=== PATIENT | female | born 1960 | race Caucasian/White ===

== ENCOUNTER 2020-11-15 07:05 | Day surgery (SDC) | payer MEDICAID ==
[~2020-11-15] VITALS: Ht 152.4 cm; Wt 64.5 kg
[2020-11-15] VITALS (10 sets, daily range): BP systolic 110–144; BP diastolic 67–77
[~2020-11-15 07:05] MED LIST: ASPI-1053 PO; CILO50TA2 PO; CLOP75TA34 PO; INSU100I31 SQ; LISI-600 PO; METF-438 PO; SIMV-45 PO; VENL150C58 PO
[2020-11-15] MEDS ORDERED: normal saline 1,000 ML IV SCH (07:30)
[2020-11-15] MEDS ORDERED: diphenhydrAMINE 25mg capsule PO PRN (07:30)
[2020-11-15] MEDS ORDERED: RIVA2.5T PEG (07:44)
[2020-11-15] MEDS ORDERED: VARE0.5T PO (07:44)
[2020-11-15] MEDS ORDERED: ATOR80TA13 PO (07:44)
[2020-11-15 08:12] LABS: BASOPHILS # (AUTO) 0.1 X10'3 (0-0.2); BASOPHILS % (AUTO) 0.8 % (0-1); EOSINOPHILS # (AUTO) 0.2 X10'3 (0-0.9); EOSINOPHILS % (AUTO) 2.1 % (0-6); HEMATOCRIT 37.8 % (35.0-45.0); HEMOGLOBIN 12.3 g/dl (12.0-16.0); LYMPHOCYTES # (AUTO) 2.6 X10'3 (1.1-4.8); LYMPHOCYTES % (AUTO) 24.6 % (21-51); MEAN CORPUSCULAR HEMOGLOBIN 26.5 PG (27.0-31.0); MEAN CORPUSCULAR HGB CONC 32.5 g/dL (33.0-36.5); MEAN CORPUSCULAR VOLUME 81.4 FL (78-98); MEAN PLATELET VOLUME 8.2 FL (7.4-10.4); MONOCYTES # (AUTO) 0.7 X10'3 (0-0.9); MONOCYTES % (AUTO) 6.8 % (2-12); NEUTROPHILS % (AUTO) 65.7 % (42-75); PLATELET COUNT 376 X10'3 (140-440); RED BLOOD COUNT 4.64 X10'6 (4.20-5.60); RED CELL DISTRIBUTION WIDTH 13.6 % (11.5-14.5); WHITE BLOOD COUNT 10.7 X10'3 (4.5-11.0)
[2020-11-15 08:20] LABS: ALBUMIN 3.7 G/DL (3.4-5.0); ANION GAP 9 (8-16); BLOOD UREA NITROGEN 16 MG/DL (7-18); BUN/CREATININE RATIO 19.5 (6.6-38.0); CALCIUM 9.1 MG/DL (8.5-10.1); CHLORIDE 103 MMOL/L (99-107); CREATININE 0.82 MG/DL (0.40-0.90); GLUCOSE 134 MG/DL (70-104); MAGNESIUM 1.3 MG/DL (1.5-2.4); POTASSIUM 4.4 MMOL/L (3.5-5.1); SODIUM 139 MMOL/L (135-145); eGFR 72 ML/MIN
[2020-11-15] MEDS ORDERED: fentaNYL/PF 50MCG/1 ML 2ML syringe ONE (09:00)
[2020-11-15] MEDS ORDERED: iohexol 350 MG/1 ML 200ml bottle ONE (09:00)
[2020-11-15] MEDS ORDERED: heparin 1,000unit/ml 10ml vial 10 ML ONE (09:00)
[2020-11-15] MEDS ORDERED: midazolam 2 mg/2 ml injection ONE ×2 (09:00→09:37)
[2020-11-15] MEDS ORDERED: iohexol 350 MG/ML 50ML vial IV ONE (09:00)
[2020-11-15] MEDS ORDERED: LIDOcaine 1% (10mg/ml)w/preservative injection 20ml MDV ONE (09:00)
[2020-11-15] MEDS ORDERED: nitroGLYCERIN-Tridil 50MG/D5W 250 ML IV ONE (10:12)
[2020-11-15] MEDS ORDERED: HYDROcodone/acetaminophen 10/325mg tab PO PRN (11:05)
[2020-11-15] MEDS ORDERED: proCHLORperazine 10 MG/2 ml inj IV PRN (11:05)
[2020-11-15] MEDS ORDERED: ondansetron/PF 4mg/2ml inj IV PRN (11:05)
[2020-11-15] MEDS ORDERED: HYDROcodone/acetaminophen 5mg/325mg tablet PO PRN (11:05)
--- NOTE | 2020-11-15 11:05 | NUR ---
pt site with drainage on drsg, area marked, no hematoma. Pt denies pain, vs stable as charted. will continue to monitor and will recheck in 10 min
--- NOTE | 2020-11-15 11:15 | NUR ---
Pressure applied at right groin, no hematoma, dressing changed with sterile technique. No visible bleeding and no hematoma after dressing change. VS stable as charted. Pt denies pain. Pulses checked and documented. Will continue to monitor.
--- NOTE | 2020-11-15 14:26 | NUR ---
Pt sitting up in bed. Drsg looks the same, no hematoma. Will continue to monitor.
--- NOTE | 2020-11-15 14:50 | NUR ---
Drsg to right groin changed with sterile technique. Pressure dressing applied over the top of Tegaderm with sponge tape, Pt verbalized understanding to remove dressing after 24 hours. No s/s of bleeding or infection.
== END 2020-11-15 15:30 | disposition home or self-care (01) ==
LOC: SSTAY O 07:05
PROVIDERS: ATTEND Internal Medicine Cardiovascular Disease
DX: R94.39 Abnormal result of other cardiovascular function study (principal); I25.10 Atherosclerotic heart disease of native coronary artery without angina pectoris; I10 Essential (primary) hypertension; E11.51 Type 2 diabetes mellitus with diabetic peripheral angiopathy without gangrene; E78.00 Pure hypercholesterolemia, unspecified; Z79.899 Other long term (current) drug therapy; Z72.0 Tobacco use; M62.81 Muscle weakness (generalized)
CPT/HCPCS: 36140; 36415; 75710; 80048; 82948; 83735; 85025; 85610; 92920; 93005; 93458; C1751; C1760; C1769; C1894; J1644; J2001; J2250; J3010; J7030; Q0163; Q9967; 99152; 99153; A4620; A6258; C9607; J3490

== ENCOUNTER 2020-12-27 06:15 | Day surgery (SDC) | payer MEDICAID ==
[~2020-12-27] VITALS: Ht 165.1 cm; Wt 66.3 kg
[2020-12-27] VITALS (9 sets, daily range): BP systolic 96–147; BP diastolic 65–74
[~2020-12-27 06:15] MED LIST changes: -ASPI-1053 PO; +ATOR80TA13 PO; -LISI-600 PO; +LISI20TA28 PO; +RIVA2.5T PEG; -SIMV-45 PO; +VARE0.5T PO
[2020-12-27] MEDS ORDERED: normal saline 1,000 ML IV SCH (06:35)
[2020-12-27] MEDS ORDERED: diphenhydrAMINE 25mg capsule PO PRN (06:35)
[2020-12-27] MEDS ORDERED: EZET10TA6 PO (06:55)
[2020-12-27] MEDS ORDERED: NITR0.4T51 SL (06:55)
[2020-12-27 07:16] LABS: BASOPHILS # (AUTO) 0.1 X10'3 (0-0.2); BASOPHILS % (AUTO) 1.3 % (0-1); EOSINOPHILS # (AUTO) 0.5 X10'3 (0-0.9); HEMATOCRIT 34.8 % (35.0-45.0); HEMOGLOBIN 11.4 g/dl (12.0-16.0); LYMPHOCYTES # (AUTO) 2.8 X10'3 (1.1-4.8); LYMPHOCYTES % (AUTO) 29.8 % (21-51); MEAN CORPUSCULAR HEMOGLOBIN 26.8 PG (27.0-31.0); MEAN CORPUSCULAR HGB CONC 32.9 g/dL (33.0-36.5); MEAN CORPUSCULAR VOLUME 81.4 FL (78-98); MEAN PLATELET VOLUME 8.8 FL (7.4-10.4); MONOCYTES # (AUTO) 0.6 X10'3 (0-0.9); MONOCYTES % (AUTO) 5.9 % (2-12); NEUTROPHILS # (AUTO) 5.4 X10'3 (1.8-7.7); PLATELET COUNT 313 X10'3 (140-440); RED BLOOD COUNT 4.28 X10'6 (4.20-5.60); RED CELL DISTRIBUTION WIDTH 13.4 % (11.5-14.5); WHITE BLOOD COUNT 9.3 X10'3 (4.5-11.0)
[2020-12-27 07:37] LABS: ALBUMIN 3.5 G/DL (3.4-5.0); ANION GAP 10 (8-16); BLOOD UREA NITROGEN 17 MG/DL (7-18); BUN/CREATININE RATIO 19.5 (6.6-38.0); CALCIUM 9.1 MG/DL (8.5-10.1); CHLORIDE 101 MMOL/L (99-107); CREATININE 0.87 MG/DL (0.40-0.90); GLUCOSE 376 MG/DL (70-104); MAGNESIUM 1.3 MG/DL (1.5-2.4); POTASSIUM 4.1 MMOL/L (3.5-5.1); SODIUM 137 MMOL/L (135-145); TOTAL CARBON DIOXIDE 26.5 MMOL/L (24-32); eGFR 67 ML/MIN
[2020-12-27] MEDS ORDERED: proCHLORperazine 10 MG/2 ml inj ONE (09:06)
[2020-12-27] MEDS ORDERED: midazolam 1 mg/ML 2ml injection ONE (09:06)
[2020-12-27] MEDS ORDERED: iohexol 350 MG/1 ML 200ml bottle ONE (09:07)
[2020-12-27] MEDS ORDERED: fentaNYL/PF 50MCG/1 ML 2ML syringe ONE (09:07)
[2020-12-27] MEDS ORDERED: heparin 1,000unit/ml 10ml vial 10 ML ONE (09:07)
[2020-12-27] MEDS ORDERED: LIDOcaine 1% (10mg/ml)w/preservative injection 20ml MDV ONE (09:07)
[2020-12-27] MEDS ORDERED: iohexol 350 MG/ML 50ML vial IV ONE (09:07)
[2020-12-27] MEDS ORDERED: normal saline 1,000 ML IV ONE (11:33)
[2020-12-27] MEDS ORDERED: normal saline 1000ml 400 ML IV ONE (11:45)
[2020-12-27] MEDS ORDERED: ondansetron/PF 4mg/2ml inj IV PRN (11:50)
[2020-12-27] MEDS ORDERED: HYDROcodone/acetaminophen 10/325mg tab PO PRN (11:50)
[2020-12-27] MEDS ORDERED: proCHLORperazine 10 MG/2 ml inj IV PRN (11:50)
[2020-12-27] MEDS ORDERED: HYDROcodone/acetaminophen 5mg/325mg tablet PO PRN (11:50)
== END 2020-12-27 15:55 | disposition home or self-care (01) ==
LOC: SSTAY O 06:15
PROVIDERS: ATTEND Internal Medicine Cardiovascular Disease
DX: E11.51 Type 2 diabetes mellitus with diabetic peripheral angiopathy without gangrene (principal); I70.213 Atherosclerosis of native arteries of extremities with intermittent claudication, bilateral legs; E78.5 Hyperlipidemia, unspecified; I10 Essential (primary) hypertension; F41.9 Anxiety disorder, unspecified; F32.9 Major depressive disorder, single episode, unspecified; Z79.899 Other long term (current) drug therapy; Z87.891 Personal history of nicotine dependence; Z79.01 Long term (current) use of anticoagulants; Z79.82 Long term (current) use of aspirin; Z98.49 Cataract extraction status, unspecified eye
CPT/HCPCS: 36415; 37226; 75716; 80048; 82948; 83735; 85025; 85610; 93005; 99152; 99153; C1725; C1760; C1769; C1876; C1894; J0780; J1644; J2001; J2250; J3010; J7030; Q0163; Q9967; A4620; A6258; C2623

== ENCOUNTER 2021-01-31 08:00 | Day surgery (SDC) | payer MEDICAID ==
[~2021-01-31] VITALS: Ht 152.4 cm; Wt 64.1 kg
[2021-01-31] VITALS (10 sets, daily range): BP systolic 142–171; BP diastolic 67–87
[~2021-01-31 08:00] MED LIST changes: +EZET10TA6 PO; +NITR0.4T51 SL
[2021-01-31] MEDS ORDERED: normal saline 1,000 ML IV SCH (08:30)
[2021-01-31] MEDS ORDERED: diphenhydrAMINE 25mg capsule PO PRN (08:30)
[2021-01-31] MEDS ORDERED: fentaNYL/PF 50MCG/1 ML 2ML syringe ONE ×2 (08:40→10:43)
[2021-01-31] MEDS ORDERED: midazolam 1 mg/ML 2ml injection ONE ×3 (08:40→09:54)
[2021-01-31] MEDS ORDERED: LIDOcaine 1% (10mg/ml)w/preservative injection 20ml MDV ONE (08:40)
[2021-01-31] MEDS ORDERED: heparin 1,000unit/ml 10ml vial 10 ML ONE (08:44)
[2021-01-31] MEDS ORDERED: iohexol 350MG/ML 100ml bottle IV ONE (08:44)
[2021-01-31 09:12] LABS: BASOPHILS # (AUTO) 0.1 X10'3 (0-0.2); BASOPHILS % (AUTO) 1.4 % (0-1); EOSINOPHILS # (AUTO) 0.4 X10'3 (0-0.9); EOSINOPHILS % (AUTO) 4.2 % (0-6); HEMATOCRIT 36.7 % (35.0-45.0); HEMOGLOBIN 11.9 g/dl (12.0-16.0); LYMPHOCYTES # (AUTO) 2.4 X10'3 (1.1-4.8); LYMPHOCYTES % (AUTO) 28.2 % (21-51); MEAN CORPUSCULAR HEMOGLOBIN 26.7 PG (27.0-31.0); MEAN CORPUSCULAR HGB CONC 32.3 g/dL (33.0-36.5); MEAN CORPUSCULAR VOLUME 82.5 FL (78-98); MEAN PLATELET VOLUME 8.2 FL (7.4-10.4); MONOCYTES # (AUTO) 0.5 X10'3 (0-0.9); NEUTROPHILS # (AUTO) 5.2 X10'3 (1.8-7.7); NEUTROPHILS % (AUTO) 60.2 % (42-75); PLATELET COUNT 333 X10'3 (140-440); RED BLOOD COUNT 4.45 X10'6 (4.20-5.60); RED CELL DISTRIBUTION WIDTH 13.7 % (11.5-14.5); WHITE BLOOD COUNT 8.7 X10'3 (4.5-11.0)
[2021-01-31 09:19] LABS: ALBUMIN 3.5 G/DL (3.4-5.0); ANION GAP 8 (8-16); BLOOD UREA NITROGEN 13 MG/DL (7-18); BUN/CREATININE RATIO 14.9 (6.6-38.0); CALCIUM 8.9 MG/DL (8.5-10.1); CHLORIDE 103 MMOL/L (99-107); CREATININE 0.87 MG/DL (0.40-0.90); GLUCOSE 293 MG/DL (70-104); MAGNESIUM 1.5 MG/DL (1.5-2.4); POTASSIUM 4.1 MMOL/L (3.5-5.1); SODIUM 138 MMOL/L (135-145); TOTAL CARBON DIOXIDE 27.1 MMOL/L (24-32); eGFR 67 ML/MIN
[2021-01-31] MEDS ORDERED: proCHLORperazine 10 MG/2 ml inj ONE (09:52)
[2021-01-31] MEDS ORDERED: iohexol 350 MG/ML 50ML vial IV ONE (10:23)
[2021-01-31] MEDS ORDERED: clopidogrel 300mg tablet ONE (10:58)
--- NOTE | 2021-01-31 11:20 | NUR ---
Problems reprioritized. Patient report given, questions answered & plan of care reviewed with Samantha DE LA ROSA.
--- NOTE | 2021-01-31 11:23 | NUR ---
Pt back from procedure. In room, pt site is stable, DRSG CD&I. Pt denies pain, vs stable as charted. Pt refuses food and drink at this time, will continue to monitor. Positive doppler pulses posterior tibia and positive Doppler pulse to rt dorsalis pedis, pulse palpated on rt dorsalis pedis. Pt started to cough and developed a hematoma to left groin. Pressure held for 10min and rechecked site. Pt site is stable, soft, no hematoma felt. Drsg is CD&I, Will continue to monitor.
[2021-01-31] MEDS ORDERED: HYDROcodone/acetaminophen 10/325mg tab PO PRN (11:45)
[2021-01-31] MEDS ORDERED: normal saline 1000ml 1,000 ML IV SCH (11:45)
[2021-01-31] MEDS ORDERED: proCHLORperazine 10 MG/2 ml inj IV PRN (11:45)
[2021-01-31] MEDS ORDERED: ondansetron/PF 4mg/2ml inj IV PRN (11:45)
[2021-01-31] MEDS ORDERED: HYDROcodone/acetaminophen 5mg/325mg tablet PO PRN (11:45)
--- NOTE | 2021-01-31 11:47 | NUR ---
Samantha RN at bedside, was given report on left groin. Will continue to monitor.
== END 2021-01-31 16:00 | disposition home or self-care (01) ==
LOC: SSTAY O 08:00
PROVIDERS: ATTEND Internal Medicine Cardiovascular Disease
DX: I70.213 Atherosclerosis of native arteries of extremities with intermittent claudication, bilateral legs (principal); M79.605 Pain in left leg; M79.604 Pain in right leg; Z95.820 Peripheral vascular angioplasty status with implants and grafts
CPT/HCPCS: 36415; 37226; 75710; 80048; 83735; 85025; 85610; 93005; 99152; 99153; C1725; C1760; C1769; C1876; C1887; C1894; J0780; J1644; J2001; J2250; J3010; J7030; Q0163; Q9967; 36247; A4620; A6258; C2623

== ENCOUNTER 2021-07-06 14:51 | Inpatient (IN) | payer MEDICAID ==
[2021-07-06] VITALS (10 sets, daily range): BP systolic 92–173; BP diastolic 63–83
[~2021-07-06] VITALS: Ht 152.4 cm; Wt 64.3 kg
[~2021-07-06 14:51] MED LIST changes: -VARE0.5T PO
[2021-07-06] MEDS ORDERED: diphenhydrAMINE 25mg capsule PO PRN (15:20)
[2021-07-06] MEDS ORDERED: VARE0.5T PO (15:27)
[2021-07-06] MEDS ORDERED: VARE1TAB21 PO (15:29)
[2021-07-06] MEDS ORDERED: AMLO2.5T2 PO (15:30)
[2021-07-06 15:42] LABS: BASOPHILS # (AUTO) 0.2 X10'3 (0-0.2); BASOPHILS % (AUTO) 1.7 % (0-1); EOSINOPHILS # (AUTO) 0.6 X10'3 (0-0.9); EOSINOPHILS % (AUTO) 5.8 % (0-6); HEMATOCRIT 36.5 % (35.0-45.0); HEMOGLOBIN 11.6 g/dl (12.0-16.0); LYMPHOCYTES # (AUTO) 2.7 X10'3 (1.1-4.8); MEAN CORPUSCULAR HGB CONC 31.8 g/dL (33.0-36.5); MEAN CORPUSCULAR VOLUME 78.6 FL (78-98); MEAN PLATELET VOLUME 8.4 FL (7.4-10.4); MONOCYTES # (AUTO) 0.6 X10'3 (0-0.9); MONOCYTES % (AUTO) 6.2 % (2-12); NEUTROPHILS # (AUTO) 5.9 X10'3 (1.8-7.7); NEUTROPHILS % (AUTO) 59.3 % (42-75); PLATELET COUNT 393 X10'3 (140-440); RED BLOOD COUNT 4.65 X10'6 (4.20-5.60); RED CELL DISTRIBUTION WIDTH 14.5 % (11.5-14.5); WHITE BLOOD COUNT 9.9 X10'3 (4.5-11.0)
[2021-07-06 15:50] LABS: ALBUMIN 3.4 G/DL (3.4-5.0); ANION GAP 9 (8-16); BLOOD UREA NITROGEN 12 MG/DL (7-18); BUN/CREATININE RATIO 15.8 (6.6-38.0); CALCIUM 9.2 MG/DL (8.5-10.1); CHLORIDE 103 MMOL/L (99-107); CREATININE 0.76 MG/DL (0.40-0.90); GLUCOSE 293 MG/DL (70-104); MAGNESIUM 1.4 MG/DL (1.5-2.4); POTASSIUM 4.2 MMOL/L (3.5-5.1); SODIUM 139 MMOL/L (135-145); TOTAL CARBON DIOXIDE 27.3 MMOL/L (24-32); eGFR 78 ML/MIN
[2021-07-06] MEDS: normal saline 1,000 ML IV SCH ×3 (16:10→23:44)
[2021-07-06] MEDS ORDERED: heparin 1,000unit/ml 10ml vial 10 ML ONE ×2 (16:12→18:31)
[2021-07-06] MEDS ORDERED: LIDOcaine 1% (10mg/ml)w/preservative injection 20ml MDV ONE (16:12)
[2021-07-06] MEDS ORDERED: midazolam 1 mg/ML 2ml injection ONE ×3 (16:12→17:28)
[2021-07-06] MEDS ORDERED: iohexol 350MG/ML 100ml bottle IV ONE (16:12)
[2021-07-06] MEDS ORDERED: fentaNYL/PF 50MCG/1 ML 2ML syringe ONE ×2 (16:12→17:28)
[2021-07-06] MEDS: tPA-cathflo 2mg/2ml IV flush 4 MG in normal saline 100ml IV soln 100 ML ICATH SCH ×2 (17:30→21:46)
[2021-07-06] MEDS ORDERED: tPA-cathflo 2 MG/2 ml IV flush ONE (17:46)
[2021-07-06] MEDS ORDERED: heparin 25,000 UNIT/250ml bag 250 ML IV ONE (18:28)
--- NOTE | 2021-07-06 19:30 | NUR ---
RN Note -Admit Pt arrived from laboratory technician, drowsy bur oriented, denies pain. Assessed groin sheath site and pulses with Dry Room Operator RN. Groin site has small amount of blood oozing inside dressing, no hematoma, not tender. Unable to obtain doppler pulses on right side pedal and post. tib. Doppler pulses on left side weak and difficult to find. Both feet are warm with delayed cap refill.
[2021-07-06] MEDS ORDERED: heparin 10,000 units/1 ML INJ IV ONE ×2 (19:45→20:25)
[2021-07-06] MEDS ORDERED: heparin 10,000 units/1 ML INJ IV PRN ×2 (19:45→20:30)
[2021-07-06] MEDS ORDERED: heparin 25,000 UNIT/250ml bag 250 ML IV SCH (19:45)
[2021-07-06] MEDS ORDERED: HYDROcodone/acetaminophen 5mg/325mg tablet PO PRN (19:50)
[2021-07-06] MEDS ORDERED: acetaminophen 325mg tablet PO PRN (19:50)
[2021-07-06] MEDS ORDERED: proCHLORperazine 10 MG/2 ml inj IV PRN (19:50)
[2021-07-06] MEDS ORDERED: ondansetron/PF 4mg/2ml inj IV PRN (19:50)
[2021-07-06] MEDS ORDERED: HYDROcodone/acetaminophen 10/325mg tab PO PRN (19:50)
[2021-07-06] MEDS ORDERED: nitroGLYCERIN 0.4mg SUBLingual tab SL PRN (20:15)
[2021-07-06] MEDS: varenicline tartrate 1mg tablet PO SCH ×2 (20:21→21:30)
[2021-07-06] MEDS ORDERED: dextrose ORAL solution 15 GM/59 ML bottle PO PRN ×2 (20:25)
[2021-07-06] MEDS ORDERED: dextrose 50%-water 50ml dispensing syringe IV PRN ×2 (20:25)
[2021-07-06] MEDS: heparin 25,000 UNIT/250ml bag 250 ML IV SCH (20:25)
[2021-07-06] MEDS ORDERED: MESSAGE TO PHARMACY PO ONE (20:25)
[2021-07-06] MEDS ORDERED: glucagon, human recombinant 1mg kit SUBCUT PRN (20:25)
--- NOTE | 2021-07-06 20:25 | NUR ---
RN Note -MD Communication Called Dr. Ulrich for blood sugar 231. Starting hyperglycemic protocol,
[2021-07-06 20:50] LABS: HEMOGLOBIN A1C 13.9 % (4.5-6.2)
[2021-07-06] MEDS: venlafaxine XR 75mg capsule (Q24H) PO SCH (21:44)
[2021-07-06] MEDS: insulin glargine (Lantus) pen - multi-dose SQ SCH (21:46)
[2021-07-07] VITALS (24 sets, daily range): BP systolic 113–195; BP diastolic 53–81
[2021-07-07] MEDS ORDERED: morphine 2 MG/ML inj. syringe IV PRN (00:10)
--- NOTE | 2021-07-07 00:10 | NUR ---
RN Note -MD Communication Called Dr. Ulrich regarding pt pain not controlled with PO meds. Orders received.
[2021-07-07] MEDS ORDERED: CADD PCA waste documentation MC PRN (00:35)
[2021-07-07] MEDS ORDERED: naloxone 0.4 mg/ml inj IV PRN (00:35)
[2021-07-07 00:48] LABS: HEMOGLOBIN 10.6 g/dl (12.0-16.0); MEAN CORPUSCULAR HEMOGLOBIN 24.5 PG (27.0-31.0); MEAN CORPUSCULAR VOLUME 78.9 FL (78-98); MEAN PLATELET VOLUME 8.2 FL (7.4-10.4); PLATELET COUNT 365 X10'3 (140-440); RED BLOOD COUNT 4.31 X10'6 (4.20-5.60); RED CELL DISTRIBUTION WIDTH 14.3 % (11.5-14.5); WHITE BLOOD COUNT 14.4 X10'3 (4.5-11.0)
[2021-07-07] MEDS: HYDROmorph./NS 0.2 mg/ml CADD 100 ML IV SCH ×12 (01:00→23:00)
--- NOTE | 2021-07-07 01:00 | NUR ---
RN Note -Dr. Ulirch at bedside examining pt
[2021-07-07] MEDS: tPA-cathflo 2mg/2ml IV flush 4 MG in normal saline 100ml IV soln 100 ML ICATH SCH ×2 (02:40→05:36)
[2021-07-07] MEDS: heparin 25,000 UNIT/250ml bag 250 ML IV SCH (03:19)
[2021-07-07 06:03] LABS: BASOPHILS # (AUTO) 0.1 X10'3 (0-0.2); BASOPHILS % (AUTO) 0.7 % (0-1); EOSINOPHILS # (AUTO) 0.1 X10'3 (0-0.9); EOSINOPHILS % (AUTO) 0.3 % (0-6); HEMATOCRIT 35.6 % (35.0-45.0); HEMOGLOBIN 11.3 g/dl (12.0-16.0); LYMPHOCYTES % (AUTO) 11.8 % (21-51); MEAN CORPUSCULAR HEMOGLOBIN 24.9 PG (27.0-31.0); MEAN CORPUSCULAR HGB CONC 31.7 g/dL (33.0-36.5); MEAN CORPUSCULAR VOLUME 78.5 FL (78-98); MEAN PLATELET VOLUME 8.2 FL (7.4-10.4); MONOCYTES # (AUTO) 0.8 X10'3 (0-0.9); MONOCYTES % (AUTO) 4.7 % (2-12); NEUTROPHILS # (AUTO) 14.2 X10'3 (1.8-7.7); NEUTROPHILS % (AUTO) 82.5 % (42-75); PLATELET COUNT 341 X10'3 (140-440); RED BLOOD COUNT 4.53 X10'6 (4.20-5.60); RED CELL DISTRIBUTION WIDTH 14.2 % (11.5-14.5); WHITE BLOOD COUNT 17.2 X10'3 (4.5-11.0)
[2021-07-07 06:09] LABS: ALBUMIN 3.3 G/DL (3.4-5.0); ANION GAP 9 (8-16); BLOOD UREA NITROGEN 11 MG/DL (7-18); BUN/CREATININE RATIO 15.9 (6.6-38.0); CALCIUM 8.6 MG/DL (8.5-10.1); CHLORIDE 103 MMOL/L (99-107); CREATININE 0.69 MG/DL (0.40-0.90); GLUCOSE 294 MG/DL (70-104); POTASSIUM 4.3 MMOL/L (3.5-5.1); SODIUM 139 MMOL/L (135-145); TOTAL CARBON DIOXIDE 26.7 MMOL/L (24-32); eGFR 87 ML/MIN
--- NOTE | 2021-07-07 06:30 | NUR ---
Patient in room ICU 2039. I have received report from [facility] [place] and had the opportunity to ask questions and assume patient care.
[2021-07-07] MEDS: clopidogrel 75mg tablet PO SCH (07:49)
[2021-07-07] MEDS: atorvastatin 20mg tablet PO SCH (07:49)
[2021-07-07] MEDS: amLODIPine 2.5mg tablet PO SCH (07:50)
[2021-07-07] MEDS: ezetimibe 10mg tablet PO SCH (07:50)
[2021-07-07] MEDS: cilostazol 50mg tablet PO SCH ×2 (08:00→20:52)
[2021-07-07] MEDS ORDERED: non-formulary drug (Rivaroxaban (Xarelto) 1 TAB) PEG SCH (08:00)
[2021-07-07] MEDS: venlafaxine XR 75mg capsule (Q24H) PO SCH (08:00)
[2021-07-07] MEDS: insulin glargine (Lantus) pen - multi-dose SQ SCH ×2 (08:00→21:23)
[2021-07-07] MEDS: insulin Lispro (HumaLOG) vial - multi-dose SQ SCH ×2 (09:26→19:35)
--- NOTE | 2021-07-07 10:00 | NUR ---
pt awake and talkative at times, mostly sleeping. dilaudid cadd effective mostly. no doppler pulses rt leg- leg cool, not cold. weak doppler pulses on left. left sheath oozing- reinforced frequently. sbp improved after norvasc given
[2021-07-07] MEDS ORDERED: LIDOcaine 1% (10mg/ml)w/preservative injection 20ml MDV ONE (11:00)
[2021-07-07] MEDS ORDERED: heparin 1,000unit/ml 10ml vial 10 ML ONE (11:00)
[2021-07-07] MEDS ORDERED: midazolam 1 mg/ML 2ml injection ONE ×2 (11:00→11:54)
[2021-07-07] MEDS ORDERED: fentaNYL/PF 50MCG/1 ML 2ML syringe ONE (11:00)
[2021-07-07] MEDS ORDERED: iohexol 350MG/ML 100ml bottle IV ONE ×2 (11:00→12:16)
[2021-07-07 11:42] LABS: HEMATOCRIT 33.4 % (35.0-45.0); HEMOGLOBIN 10.2 g/dl (12.0-16.0); MEAN CORPUSCULAR HEMOGLOBIN 24.6 PG (27.0-31.0); MEAN CORPUSCULAR HGB CONC 30.5 g/dL (33.0-36.5); MEAN CORPUSCULAR VOLUME 80.5 FL (78-98); PLATELET COUNT 320 X10'3 (140-440); RED BLOOD COUNT 4.15 X10'6 (4.20-5.60); RED CELL DISTRIBUTION WIDTH 14.5 % (11.5-14.5); WHITE BLOOD COUNT 12.3 X10'3 (4.5-11.0)
--- NOTE | 2021-07-07 13:30 | NUR ---
to construction or leak gang laborer and back- ptt low in am - bolus and gtt changed. during procedure- construction or leak gang laborer called with high ptt done before procedure.- off .
[2021-07-07] MEDS ORDERED: heparin 10,000 units/1 ML INJ IV PRN (14:55)
[2021-07-07] MEDS ORDERED: heparin 25,000 UNIT/250ml bag 250 ML IV SCH (14:55)
--- NOTE | 2021-07-07 15:50 | NUR ---
ptt now at 30- drip restarted- will recheck in 2 hours.- update to son and daughter x 2.
[2021-07-07] MEDS: normal saline 1,000 ML IV SCH (19:08)
[2021-07-07] MEDS: varenicline tartrate 1mg tablet PO SCH (20:00)
[2021-07-07] MEDS: pantoprazole 40mg Tablet.DR PO SCH (20:52)
[2021-07-07] MEDS: docusate sod 100mg capsule PO SCH (20:52)
[2021-07-08] VITALS (24 sets, daily range): BP systolic 126–147; BP diastolic 54–68
[2021-07-08] MEDS: HYDROmorph./NS 0.2 mg/ml CADD 100 ML IV SCH ×12 (01:00→22:55)
[2021-07-08] MEDS: normal saline 1,000 ML IV SCH ×5 (02:29→22:51)
[2021-07-08 03:32] LABS: BASOPHILS # (AUTO) 0.1 X10'3 (0-0.2); BASOPHILS % (AUTO) 0.8 % (0-1); EOSINOPHILS # (AUTO) 0.2 X10'3 (0-0.9); EOSINOPHILS % (AUTO) 2.5 % (0-6); HEMATOCRIT 27.7 % (35.0-45.0); HEMOGLOBIN 8.8 g/dl (12.0-16.0); LYMPHOCYTES # (AUTO) 2.5 X10'3 (1.1-4.8); LYMPHOCYTES % (AUTO) 27.8 % (21-51); MEAN CORPUSCULAR HEMOGLOBIN 25.5 PG (27.0-31.0); MEAN CORPUSCULAR HGB CONC 31.9 g/dL (33.0-36.5); MEAN CORPUSCULAR VOLUME 79.9 FL (78-98); MEAN PLATELET VOLUME 8.3 FL (7.4-10.4); MONOCYTES # (AUTO) 0.7 X10'3 (0-0.9); NEUTROPHILS # (AUTO) 5.6 X10'3 (1.8-7.7); NEUTROPHILS % (AUTO) 60.9 % (42-75); PLATELET COUNT 279 X10'3 (140-440); RED BLOOD COUNT 3.46 X10'6 (4.20-5.60); RED CELL DISTRIBUTION WIDTH 14.4 % (11.5-14.5); WHITE BLOOD COUNT 9.1 X10'3 (4.5-11.0)
[2021-07-08 03:43] LABS: ALBUMIN 2.5 G/DL (3.4-5.0); ANION GAP 6 (8-16); BLOOD UREA NITROGEN 13 MG/DL (7-18); BUN/CREATININE RATIO 23.6 (6.6-38.0); CHLORIDE 107 MMOL/L (99-107); CREATININE 0.55 MG/DL (0.40-0.90); GLUCOSE 113 MG/DL (70-104); POTASSIUM 3.7 MMOL/L (3.5-5.1); SODIUM 140 MMOL/L (135-145); TOTAL CARBON DIOXIDE 26.9 MMOL/L (24-32); eGFR > 90 ML/MIN
--- NOTE | 2021-07-08 06:00 | NUR ---
Patient in room ICU 2039. I have received report from Mac RN and had the opportunity to ask questions and assume patient care.
[2021-07-08] MEDS: varenicline tartrate 1mg tablet PO SCH ×2 (08:00→19:49)
[2021-07-08] MEDS: ezetimibe 10mg tablet PO SCH (08:47)
[2021-07-08] MEDS: pantoprazole 40mg Tablet.DR PO SCH ×2 (08:47→19:29)
[2021-07-08] MEDS: clopidogrel 75mg tablet PO SCH (08:47)
[2021-07-08] MEDS: amLODIPine 2.5mg tablet PO SCH (08:47)
[2021-07-08] MEDS: venlafaxine XR 75mg capsule (Q24H) PO SCH (08:47)
[2021-07-08] MEDS: docusate sod 100mg capsule PO SCH ×2 (08:47→19:26)
[2021-07-08] MEDS: atorvastatin 20mg tablet PO SCH (08:48)
[2021-07-08] MEDS: cilostazol 50mg tablet PO SCH ×2 (08:56→19:26)
[2021-07-08] MEDS: insulin glargine (Lantus) pen - multi-dose SQ SCH ×2 (09:03→21:15)
[2021-07-08] MEDS ORDERED: LIDOcaine 1% (10mg/ml)w/preservative injection 20ml MDV ONE (09:22)
--- NOTE | 2021-07-08 09:30 | NUR ---
MD Ulrich and Rosalva RN from [facility] at bedside and removed sheath. Pt has cap refill to L foot <2 seconds and good pink color but DP or PT pulse is not heard on doppler, no hematoma or bleeding Rosalva [facility] at bedside and aware of doppler result and position of femstop. will cont to assess groin
--- NOTE | 2021-07-08 09:45 | NUR ---
Regarding Left leg and groin- site stable, no hematoma, no pulse on doppler, <2sec cap refill, warm toes, femstop placed by MD Chi
--- NOTE | 2021-07-08 10:00 | NUR ---
regarding Left leg and groin- site stable, no hematoma, no pulse on doppler, <2sec cap refill, warm toes
--- NOTE | 2021-07-08 10:15 | NUR ---
Pt still has no doppler pulses to left foot, cap refill to L foot < 2 sec and good color. pt says she has not had a change in her sensation to L extremity. warm. no sign of hematoma
--- NOTE | 2021-07-08 10:30 | NUR ---
no doppler pulse still to L foot, no bleeding, cap refill L foot <2sec, pt denies any change to her sensation to L foot from pre-sheath removal. no signs of bleeding noted to L groin
--- NOTE | 2021-07-08 12:30 | NUR ---
DM Consult: Pt hx T2DM A1C 13.9 taking Metformin and Lantus at home per pharmacy. Pt admit DX LE PVD w/ occlusion to prior stent and SFA s/p TPA. Pt seen by RD for written/verbal DM ed w/ RD contact information provided. Pt reports knowing Glu elevated "past few weeks" does report having prior education for DM diet guidelines but does not always follow. Pt reports does eat lots of fruit sometimes in excess and is aware of importance of protein/fiber balances w/ meals to help optimize Glu daily. Pt reports takes metformin and nightly insulin per Rx w/ no issues regarding refills. RD encouraged pt to contact dietitian's office if further questions/concerns. Addendum: 07/08/21 at [address] Amended: Links added.
[2021-07-08] MEDS: insulin Lispro (HumaLOG) vial - multi-dose SQ SCH ×2 (14:14→19:26)
--- NOTE | 2021-07-08 16:00 | NUR ---
Several calls to laboratory miller and short stay to locate pt belongings, house keeper Michoacano was the star and found her items in lost and found! Thanks again Michoacano! Pt was so relieved to have items accounted for.
--- NOTE | 2021-07-08 17:00 | NUR ---
immobilizer brace applied to R leg per md pick order
--- NOTE | 2021-07-08 18:00 | NUR ---
Problems reprioritized. Patient report given, questions answered & plan of care reviewed with Dayna DE LA ROSA.
--- NOTE | 2021-07-08 18:20 | NUR ---
Patient in room ICU 2039. I have received report from Juanjose DE LA ROSA and had the opportunity to ask questions and assume patient care.
[2021-07-08] MEDS: apixaban 5mg tablet PO SCH (21:09)
[2021-07-09] VITALS (9 sets, daily range): BP systolic 120–153; BP diastolic 51–74
[2021-07-09] MEDS: HYDROmorph./NS 0.2 mg/ml CADD 100 ML IV SCH ×8 (01:00→15:00)
--- NOTE | 2021-07-09 04:00 | NUR ---
Patient in room PCU 3017. I have received report from SHANIA DE LA ROSA and had the opportunity to ask questions and assume patient care.
--- NOTE | 2021-07-09 04:30 | NUR ---
AGREE WITH FORMER ASSESSMENT. PT AWAKE, PLEASANT. DENIES PAIN/ NEEDS
[2021-07-09] MEDS ORDERED: metFORMIN 500mg tablet PO SCH (08:00)
[2021-07-09] MEDS: varenicline tartrate 1mg tablet PO SCH (08:00)
[2021-07-09] MEDS: docusate sod 100mg capsule PO SCH (08:00)
[2021-07-09] MEDS: insulin glargine (Lantus) pen - multi-dose SQ SCH (08:00)
[2021-07-09] MEDS: venlafaxine XR 75mg capsule (Q24H) PO SCH (08:44)
[2021-07-09] MEDS: atorvastatin 20mg tablet PO SCH (08:44)
[2021-07-09] MEDS: apixaban 5mg tablet PO SCH (08:44)
[2021-07-09] MEDS: amLODIPine 2.5mg tablet PO SCH (08:45)
[2021-07-09] MEDS: clopidogrel 75mg tablet PO SCH (08:45)
[2021-07-09] MEDS: pantoprazole 40mg Tablet.DR PO SCH (08:45)
[2021-07-09] MEDS: cilostazol 50mg tablet PO SCH (08:45)
[2021-07-09] MEDS: ezetimibe 10mg tablet PO SCH (08:46)
[2021-07-09] MEDS: insulin Lispro (HumaLOG) vial - multi-dose SQ SCH (09:41)
--- NOTE | 2021-07-09 10:34 | NUR ---
Called daughter to notify her that we do not stock the patient's medications Varenicline tartrate. No answer and voicemail box is full.
[2021-07-09] MEDS ORDERED: APIX5TAB3 PO (13:06)
--- NOTE | 2021-07-09 15:19 | NUR ---
Son aware that she is ready for discharge. He will come to pick her up at approx. 1530. Dr Ulrich called to clarify medication reconciliation. Hold Yelena for now.
--- NOTE | 2021-07-09 15:42 | NUR ---
Pt discharged home. ID and IV band removed. pt verbalized understanding and signed d/c instructions. Instructions reviewed with daughter as well. Ambulated to car w/ one person assist.
== END 2021-07-09 15:35 | disposition home or self-care (01) | DRG 182 ==
LOC: SSTAY O 14:51 → ICU 2S 14:52 → PCU 3S 07-09 04:15
PROVIDERS: ADMIT Internal Medicine Cardiovascular Disease; ATTEND Internal Medicine Cardiovascular Disease
PROC: 047L3ZZ Dilation of Left Femoral Artery, Percutaneous Approach (ICD-10-PCS; principal; 2021-07-06)
PROC: 047N3ZZ Dilation of Left Popliteal Artery, Percutaneous Approach (ICD-10-PCS; 2021-07-06)
PROC: B41G1ZZ Fluoroscopy of Left Lower Extremity Arteries using Low Osmolar Contrast (ICD-10-PCS; 2021-07-06)
PROC: 3E05317 Introduction of Other Thrombolytic into Peripheral Artery, Percutaneous Approach (ICD-10-PCS; 2021-07-06)
PROC: B41F1ZZ Fluoroscopy of Right Lower Extremity Arteries using Low Osmolar Contrast (ICD-10-PCS; 2021-07-07)
PROC: 047K3DZ Dilation of Right Femoral Artery with Intraluminal Device, Percutaneous Approach (ICD-10-PCS; 2021-07-07)
PROC: 047K3Z1 Dilation of Right Femoral Artery using Drug-Coated Balloon, Percutaneous Approach (ICD-10-PCS; 2021-07-07)
DX: T82.898A Other specified complication of vascular prosthetic devices, implants and grafts, initial encounter (principal); E11.51 Type 2 diabetes mellitus with diabetic peripheral angiopathy without gangrene; I70.221 Atherosclerosis of native arteries of extremities with rest pain, right leg; E78.00 Pure hypercholesterolemia, unspecified; F17.210 Nicotine dependence, cigarettes, uncomplicated; Y83.8 Other surgical procedures as the cause of abnormal reaction of the patient, or of later complication, without mention of misadventure at the time of the procedure; I10 Essential (primary) hypertension; E78.2 Mixed hyperlipidemia; G89.29 Other chronic pain; M54.5 Low back pain; Z71.6 Tobacco abuse counseling; Y92.89 Other specified places as the place of occurrence of the external cause
CPT/HCPCS: 36415; 37213; 37224; 37226; 80048; 82948; 83036; 83735; 85025; 85027; 85347; 85384; 85610; 85730; 93005; 99152; 99153; A4620; A6258; A6449; C1725; C1729; C1751; C1769; C1876; C1887; C1894; C2623; G0378; J1170; J1644; J1815; J2001; J2250; J2270; J2997; J3010; J7030; J7040; Q0163; Q9967

== ENCOUNTER 2021-10-28 22:24 | Emergency (ER) | payer MEDICARE, MEDICAID ==
[~2021-10-28] VITALS: Ht 152.4 cm; Wt 61.4 kg
[~2021-10-28 22:24] MED LIST changes: +AMLO2.5T2 PO; +APIX5TAB3 PO; -LISI20TA28 PO; -RIVA2.5T PEG; +VARE1TAB21 PO
[2021-10-29] MEDS ORDERED: HYDR-3965 PO (02:20)
[2021-10-29] MEDS ORDERED: cephalexin 500mg capsule PO ONE (02:20)
[2021-10-29] MEDS ORDERED: HYDROcodone/acetaminophen 5mg/325mg tablet PO ONE (02:20)
[2021-10-29] MEDS ORDERED: CEPH-585 PO (02:20)
[2021-10-29 03:30] VITALS: BP 136/66
== END 2021-10-29 03:34 | disposition home or self-care (01) ==
LOC: ER 22:24
DX: S90.122A Contusion of left lesser toe(s) without damage to nail, initial encounter (principal); S90.415A Abrasion, left lesser toe(s), initial encounter; L03.032 Cellulitis of left toe; M79.675 Pain in left toe(s); E11.42 Type 2 diabetes mellitus with diabetic polyneuropathy; Z79.2 Long term (current) use of antibiotics; Z79.4 Long term (current) use of insulin; Z79.899 Other long term (current) drug therapy; X58.XXXA Exposure to other specified factors, initial encounter; Y93.89 Activity, other specified; Y92.89 Other specified places as the place of occurrence of the external cause; Y99.8 Other external cause status
CPT/HCPCS: 73630; 99283

== ENCOUNTER 2021-11-08 15:23 | Inpatient (IN) | payer MEDICARE, MEDICAID ==
[~2021-11-08] VITALS: Ht 152.4 cm; Wt 92.5 kg
[~2021-11-08 15:23] MED LIST changes: +CEPH-585 PO; +HYDR-3965 PO; +sevoflurane 250ml liquid IH ONE
[2021-11-08] MEDS ORDERED: iohexol 350MG/ML 100ml bottle IV ONE (19:23)
--- NOTE | 2021-11-08 20:13 | NUR ---
VASCULAR PAGED AT 2013 Addendum: 11/09/21 at 1418 by DOLORES NO CHANGE IN HEPARIN RATE, PTT 63
[2021-11-08 20:28] LABS: BASOPHILS # (AUTO) 0.1 X10'3 (0-0.2); BASOPHILS % (AUTO) 1.1 % (0-1); EOSINOPHILS # (AUTO) 0.7 X10'3 (0-0.9); EOSINOPHILS % (AUTO) 6.5 % (0-6); HEMATOCRIT 35.7 % (35.0-45.0); HEMOGLOBIN 11.2 g/dl (12.0-16.0); LYMPHOCYTES # (AUTO) 3.3 X10'3 (1.1-4.8); LYMPHOCYTES % (AUTO) 31.3 % (21-51); MEAN CORPUSCULAR HEMOGLOBIN 23.5 PG (27.0-31.0); MEAN CORPUSCULAR HGB CONC 31.3 g/dL (33.0-36.5); MEAN CORPUSCULAR VOLUME 75.2 FL (78-98); MONOCYTES # (AUTO) 0.6 X10'3 (0-0.9); MONOCYTES % (AUTO) 5.3 % (2-12); NEUTROPHILS # (AUTO) 5.8 X10'3 (1.8-7.7); NEUTROPHILS % (AUTO) 55.8 % (42-75); PLATELET COUNT 292 X10'3 (140-440); RED BLOOD COUNT 4.75 X10'6 (4.20-5.60); RED CELL DISTRIBUTION WIDTH 15.9 % (11.5-14.5); WHITE BLOOD COUNT 10.4 X10'3 (4.5-11.0)
[2021-11-08 20:41] LABS: APTT 25 SECONDS (22-32)
[2021-11-08 20:43] LABS: ALANINE AMINOTRANSFERASE 23 U/L (12-78); ALBUMIN 3.9 G/DL (3.4-5.0); ALBUMIN/GLOBULIN RATIO 1.2 (1.1-1.5); ALKALINE PHOSPHATASE 97 IU/L (46-116); ANION GAP 11 (8-16); ASPARTATE AMINO TRANSFERASE 14 U/L (10-37); BILIRUBIN,TOTAL 0.2 MG/DL (0.1-1.0); BLOOD UREA NITROGEN 22 MG/DL (7-18); BUN/CREATININE RATIO 25.9 (6.6-38.0); CALCIUM 9.5 MG/DL (8.5-10.1); CHLORIDE 103 MMOL/L (99-107); CREATININE 0.85 MG/DL (0.40-0.90); GLUCOSE 178 MG/DL (70-104); MAGNESIUM 1.3 MG/DL (1.5-2.4); POTASSIUM 4.2 MMOL/L (3.5-5.1); SODIUM 142 MMOL/L (135-145); TOTAL CARBON DIOXIDE 28.2 MMOL/L (24-32); TOTAL PROTEIN 7.1 G/DL (6.4-8.2); eGFR 69 ML/MIN
[2021-11-08] MEDS ORDERED: heparin 10,000 units/1 ML INJ IV ONE (21:55)
[2021-11-08] MEDS ORDERED: heparin 10,000 units/1 ML INJ IV PRN (21:55)
--- NOTE | 2021-11-08 22:31 | NUR ---
PT ROOMED TO BED 12. ASSUMED CARE OF PT.
[2021-11-08] MEDS ORDERED: CITA20TA26 PO (22:32)
[2021-11-08] MEDS ORDERED: ATOR40TA72 PO (22:32)
[2021-11-08] MEDS ORDERED: INSU100I31 SQ (22:39)
[2021-11-08] MEDS: heparin 25,000 UNIT/250ml bag 250 ML IV SCH (22:44)
[2021-11-08] MEDS ORDERED: magnesium hydroxide 30ml (MOM) UD suspension PO PRN (22:50)
[2021-11-08] MEDS ORDERED: ondansetron/PF 4mg/2ml inj IV PRN (22:50)
[2021-11-08] MEDS ORDERED: FLUSH 4 MG ICATH SCH (23:20)
[2021-11-08] MEDS ORDERED: TPA CATHFLO ICATH SCH (23:20)
[2021-11-08] MEDS ORDERED: NORMAL SALINE ICATH SCH (23:20)
[2021-11-08] MEDS ORDERED: LIDOcaine 1% (10mg/ml) 2ml vial ONE (23:23)
[2021-11-08] MEDS ORDERED: iohexol 300mg/ml 100ml inj. ONE ×2 (23:24→23:34)
[2021-11-08] MEDS ORDERED: heparin 1,000 UNITS/NS 500ml 500 ML ONE (23:24)
[2021-11-08] MEDS ORDERED: midazolam 1 mg/ML 2ml injection ONE (23:24)
[2021-11-08] MEDS ORDERED: fentaNYL/PF 50MCG/1 ML 2ML syringe ONE (23:24)
--- NOTE | 2021-11-08 23:48 | NUR ---
PT GOING TO ANGIOGRAM AT PRESENT.
--- NOTE | 2021-11-09 00:30 | NUR ---
PT IS BACK IN ROOM 12
[2021-11-09] MEDS: morphine 4 MG/ML inj SYRINge IV PRN (02:32)
[2021-11-09 05:06] LABS: BASOPHILS # (AUTO) 0.1 X10'3 (0-0.2); BASOPHILS % (AUTO) 1.4 % (0-1); EOSINOPHILS # (AUTO) 0.7 X10'3 (0-0.9); EOSINOPHILS % (AUTO) 7.3 % (0-6); HEMATOCRIT 31.4 % (35.0-45.0); HEMOGLOBIN 9.9 g/dl (12.0-16.0); LYMPHOCYTES # (AUTO) 3.6 X10'3 (1.1-4.8); LYMPHOCYTES % (AUTO) 38.7 % (21-51); MEAN CORPUSCULAR HEMOGLOBIN 23.7 PG (27.0-31.0); MEAN CORPUSCULAR HGB CONC 31.7 g/dL (33.0-36.5); MEAN CORPUSCULAR VOLUME 74.7 FL (78-98); MONOCYTES # (AUTO) 0.5 X10'3 (0-0.9); MONOCYTES % (AUTO) 5.6 % (2-12); NEUTROPHILS # (AUTO) 4.4 X10'3 (1.8-7.7); PLATELET COUNT 251 X10'3 (140-440); WHITE BLOOD COUNT 9.3 X10'3 (4.5-11.0)
[2021-11-09 05:15] LABS: ALBUMIN 3.1 G/DL (3.4-5.0); ANION GAP 7 (8-16); BLOOD UREA NITROGEN 17 MG/DL (7-18); BUN/CREATININE RATIO 27.4 (6.6-38.0); CALCIUM 8.1 MG/DL (8.5-10.1); CHLORIDE 109 MMOL/L (99-107); CREATININE 0.62 MG/DL (0.40-0.90); GLUCOSE 170 MG/DL (70-104); POTASSIUM 3.9 MMOL/L (3.5-5.1); SODIUM 142 MMOL/L (135-145); TOTAL CARBON DIOXIDE 25.6 MMOL/L (24-32); eGFR > 90 ML/MIN
--- NOTE | 2021-11-09 06:25 | NUR ---
md from ir cancelled tpa due to chronic clot forming in lower ext.
--- NOTE | 2021-11-09 07:30 | NUR ---
pulses palpable in lower ext lito
--- NOTE | 2021-11-09 07:31 | NUR ---
PT AWAKE ALERT AND TALKATIVE.
--- NOTE | 2021-11-09 07:32 | NUR ---
JUAN [facility] [phone]
--- NOTE | 2021-11-09 07:36 | NUR ---
JUAN STATES, PT DOESNT TAKE GOOD CARE OF HERSELF, ALWAYS WORRIED ABOUT EVERYONE ELSE. PUTS THINGS OFF AND NOW SHE ENDS UP LIKE THIS"
[2021-11-09] MEDS: aspirin 81mg tab.chew PO SCH (11:04)
[2021-11-09] MEDS: atorvastatin 20mg tablet PO SCH (11:04)
[2021-11-09] MEDS: famotidine/PF 10 mg/ml inj IV SCH ×2 (11:04→21:37)
[2021-11-09] MEDS ORDERED: aminophylline 250mg/10ml inj. IV PRN ×2 (13:05→13:25)
[2021-11-09] MEDS ORDERED: regadenoson 0.4mg/5ml syringe IV ONE (13:05)
[2021-11-09] MEDS ORDERED: metoprolol tartrate 1mg/ml inj IV PRN ×2 (13:05→13:25)
[2021-11-09] MEDS ORDERED: regadenoson 0.4mg/5ml syringe IV PRN ×2 (13:05→13:25)
[2021-11-09] MEDS ORDERED: nitroGLYCERIN 0.4mg SUBLingual tab SL PRN ×2 (13:05→13:25)
--- NOTE | 2021-11-09 13:09 | NUR ---
PATIENT TO ROSAS AT THIS TIME.
--- NOTE | 2021-11-09 13:21 | NUR ---
pt to nuc med on monitor with RN
[2021-11-09 13:48] VITALS: BP 111/62
[2021-11-09 14:04] VITALS: BP 129/60
[2021-11-09 14:05] VITALS: BP 118/55
[2021-11-09] MEDS ORDERED: iohexol 300mg/ml 100ml inj. ONE (14:05)
[2021-11-09 14:06] VITALS: BP 132/58
[2021-11-09 14:07] VITALS: BP 132/57
[2021-11-09 14:08] VITALS: BP 131/57
--- NOTE | 2021-11-09 14:18 | NUR ---
DR. GREER ENCEPHALOGRAPHER CALLED AND REPORT GIVEN. STATES, "I WILL BE DOWN LATER TO ASSESS PT"
--- NOTE | 2021-11-09 15:31 | NUR ---
called dr. joseph rivera back from [facility]. did not answer. here to take pt to IR. Pt in stable condition
[2021-11-09] MEDS ORDERED: heparin 1,000 UNITS/NS 500ml 500 ML ONE (15:41)
[2021-11-09] MEDS ORDERED: midazolam 1 mg/ML 2ml injection ONE ×2 (15:47→16:22)
[2021-11-09] MEDS ORDERED: fentaNYL/PF 50MCG/1 ML 2ML syringe ONE ×2 (15:47→16:23)
[2021-11-09] MEDS ORDERED: heparin 1,000unit/ml 10ml vial 10 ML ONE (15:52)
--- NOTE | 2021-11-09 17:20 | NUR ---
PT BACK FROM IR. DID NOT PLACE STENT, EXPLORATORY. IR SPOKE WITH DR. DAVEY PER SHELBY THE IR NURSE. PT IN STABLE CONDTION.
--- NOTE | 2021-11-09 18:30 | NUR ---
ESTRELLA CAM WILL DRAW PTT.
[2021-11-09 19:17] LABS: HEMOGLOBIN A1C 12.4 % (4.5-6.2)
--- NOTE | 2021-11-09 20:55 | NUR ---
CONTACTED DR VERMA D/T PT'S CRITICAL PTT RESULT. GIVEN ORDER TO FOLLOW HEPARIN ORDERS WHICH INCLUDES HOLDING INFUSION FOR TWO HRS AND REDRAWING PTT IN 2 HRS.
[2021-11-09] MEDS: heparin 25,000 UNIT/250ml bag 250 ML IV SCH (23:24)
[2021-11-10] VITALS (11 sets, daily range): BP systolic 79–224; BP diastolic 53–87
[2021-11-10] MEDS: morphine 4 MG/ML inj SYRINge IV PRN ×2 (00:10→13:17)
[2021-11-10 06:15] LABS: BASOPHILS # (AUTO) 0.1 X10'3 (0-0.2); BASOPHILS % (AUTO) 1.1 % (0-1); EOSINOPHILS # (AUTO) 0.4 X10'3 (0-0.9); HEMATOCRIT 34.1 % (35.0-45.0); HEMOGLOBIN 10.8 g/dl (12.0-16.0); LYMPHOCYTES # (AUTO) 3.3 X10'3 (1.1-4.8); LYMPHOCYTES % (AUTO) 36.6 % (21-51); MEAN CORPUSCULAR HEMOGLOBIN 23.6 PG (27.0-31.0); MEAN CORPUSCULAR HGB CONC 31.8 g/dL (33.0-36.5); MEAN CORPUSCULAR VOLUME 74.2 FL (78-98); MEAN PLATELET VOLUME 9.2 FL (7.4-10.4); MONOCYTES # (AUTO) 0.5 X10'3 (0-0.9); MONOCYTES % (AUTO) 5.9 % (2-12); NEUTROPHILS # (AUTO) 4.6 X10'3 (1.8-7.7); NEUTROPHILS % (AUTO) 51.4 % (42-75); PLATELET COUNT 268 X10'3 (140-440); RED BLOOD COUNT 4.59 X10'6 (4.20-5.60); WHITE BLOOD COUNT 8.9 X10'3 (4.5-11.0)
[2021-11-10 06:29] LABS: ALBUMIN 3.3 G/DL (3.4-5.0); ANION GAP 5 (8-16); BLOOD UREA NITROGEN 18 MG/DL (7-18); BUN/CREATININE RATIO 22.8 (6.6-38.0); CALCIUM 8.6 MG/DL (8.5-10.1); CHLORIDE 106 MMOL/L (99-107); CREATININE 0.79 MG/DL (0.40-0.90); GLUCOSE 245 MG/DL (70-104); POTASSIUM 4.2 MMOL/L (3.5-5.1); SODIUM 140 MMOL/L (135-145); TOTAL CARBON DIOXIDE 28.6 MMOL/L (24-32); eGFR 75 ML/MIN
[2021-11-10] MEDS: atorvastatin 20mg tablet PO SCH (07:56)
[2021-11-10] MEDS: amLODIPine 2.5mg tablet PO SCH (07:59)
[2021-11-10] MEDS: aspirin 81mg tab.chew PO SCH (08:00)
[2021-11-10] MEDS ORDERED: atorvastatin 20mg tablet PO SCH (08:00)
[2021-11-10] MEDS: acetaminophen 325mg tablet PO PRN (08:05)
[2021-11-10] MEDS: clopidogrel 75mg tablet PO SCH (08:08)
--- NOTE | 2021-11-10 08:10 | NUR ---
hep gtt titrated up from 900u to 1100u Isabel GALLARDO Addendum: 11/10/21 at 0814 by Isabel Alarcon RN previously documented wrong on bolus infusion; currently running 1100u
--- NOTE | 2021-11-10 08:21 | NUR ---
Patient in room PCU 3015. I have received report from Isabel DE LA ROSA and had the opportunity to ask questions and assume patient care.
[2021-11-10] MEDS: famotidine/PF 10 mg/ml inj IV SCH ×2 (08:22→20:00)
[2021-11-10] MEDS: morphine 2 MG/ML inj. syringe IV PRN (08:23)
--- NOTE | 2021-11-10 11:15 | NUR ---
Diabetes Consult: Pt w/ A1c of 12.4 though no hx of DM in EMR. Pt home medications include insulin and metformin per EMR. FABIO d/w RN; RN stated pt previously dx w/ DM; stated pt aware of poorly controlled blood sugar. FABIO d/w pt; pt stated previously received information about diabetes. FABIO provided written and verbal diabetes education with RD contact information. Addendum: 11/10/21 at 1115 by Pierre Perez Intern FABIO Amended: Links added. Addendum: 11/10/21 at [address] I have reviewed assessment by Carpenter Apprentice
[2021-11-10] MEDS ORDERED: gentamicin 40 MG/1 ML inj ONE (14:09)
[2021-11-10] MEDS ORDERED: ceFAZolin 1000mg inj ONE ×4 (14:09→19:27)
[2021-11-10] MEDS ORDERED: heparin 10,000 units/1 ML INJ ONE (14:09)
[2021-11-10] MEDS ORDERED: clindamycin phosphate 150mg/ml inj. ONE (14:09)
--- NOTE | 2021-11-10 15:22 | NUR ---
Report given to Breanna DE LA ROSA in recovery, no questions at end of report. ; Verbal order to turn off hep gtt from Dr. Cabrera; Hep gtt off and pt to surgery.
--- NOTE | 2021-11-10 15:49 | NUR ---
Pt. critical PTT result of 116 called to recovery since patient downstairs when critical was received; Isabel Click U
[2021-11-10] MEDS ORDERED: ringers solution, lacted 1,000 ML IV SCH (15:55)
[2021-11-10] MEDS ORDERED: hydrALAZINE 20mg/ml inj. IV PRN (15:55)
[2021-11-10] MEDS ORDERED: ondansetron/PF 4mg/2ml inj IV PRN (15:55)
[2021-11-10] MEDS ORDERED: HYDROmorphone/PF 0.2 MG/ML SYRINGE IV PRN ×2 (15:55)
[2021-11-10] MEDS ORDERED: proCHLORperazine 10 MG/2 ml inj IV PRN (15:55)
[2021-11-10] MEDS ORDERED: morphine 4 MG/ML inj SYRINge IV PRN (15:55)
[2021-11-10] MEDS ORDERED: meperidine/PF 25mg/ml syringe IV PRN (15:55)
[2021-11-10] MEDS ORDERED: acetaminophen 1,000mg/100ml IV 100 ML IV PRN (15:55)
[2021-11-10] MEDS ORDERED: morphine 2 MG/ML inj. syringe IV PRN (15:55)
[2021-11-10] MEDS ORDERED: labetalol 20mg/4ml (5mg/ml) syringe IV PRN (15:55)
[2021-11-10] MEDS: ceFAZolin/D5W- 1GM premix 50 ML IV SCH (16:00)
[2021-11-10] MEDS ORDERED: midazolam 1 mg/ML 2ml injection ONE ×2 (16:11→21:56)
[2021-11-10] MEDS ORDERED: fentaNYL /PF 50mcg/ml 5ml ampule ONE (17:11)
[2021-11-10] MEDS ORDERED: 0.9 % SODIUM CHLORIDE 10 ML VIAL ONE ×4 (17:11→20:56)
[2021-11-10] MEDS ORDERED: LIDOcaine 2% (20mg/ml) 5ml vial ONE (17:11)
[2021-11-10] MEDS ORDERED: rocuronium 10mg/ml inj IV ONE ×3 (17:11→21:19)
[2021-11-10] MEDS ORDERED: propofol inj 20 ML IV ONE (17:11)
[2021-11-10] MEDS ORDERED: LIDOcaine 1%/PF 5ML 10 MG/ML VIAL ONE (17:11)
[2021-11-10] MEDS ORDERED: NORepinephrine inj. 8 MG in dextrose 5%-water 242 ML IV SCH (17:35)
[2021-11-10] MEDS: NORepinephrine 8mg/ 250ml NS 250 ML IV SCH (17:40)
[2021-11-10] MEDS ORDERED: albumin (Human) 5% 250ml 250 ML IV ONE ×5 (18:52→22:45)
[2021-11-10] MEDS ORDERED: calcium chloride 100 MG/1 ML inj IV ONE (19:42)
[2021-11-10] MEDS ORDERED: insulin regular, human U-100 3ml vial - multi-dose ONE (19:49)
[2021-11-10 19:55] LABS: ABG BASE EXCESS -2.9 mmol/L (-2.0-2.0); ABG HCO3 21.5 mmol/L (22.0-26.0); ABG OXYGEN SATURATION 91.1 % (94-97); ABG PCO2 (T) 33.6 mmHg (32.0-45.0); ABG PO2 (T) 59.9 mmHg (75.0-100.0); FCOHb 0.1 % (0.0-3.9); FMetHb 0.3 % (0.0-1.5); FO2Hb 90.7 % (94-97); PATIENT TEMPERATURE 36.2
[2021-11-10] MEDS ORDERED: albuterol 60 PUFF/8GM Inhaler IH ONE (20:11)
[2021-11-10] MEDS ORDERED: protamine sulfate 10mg/ml inj. ONE (20:33)
[2021-11-10] MEDS ORDERED: midazolam 1 mg/ML 2ml injection IV ONE (20:45)
[2021-11-10] MEDS ORDERED: fentaNYL/PF 50MCG/1 ML 2ML syringe IV PRN (20:45)
[2021-11-10] MEDS ORDERED: midazolam 100mg in NS 100ml 100 ML IV PRN (20:45)
[2021-11-10] MEDS ORDERED: phenylephrine 10mg/ml inj. ONE (20:56)
[2021-11-10] MEDS ORDERED: heparin 1,000unit/ml 10ml vial 10 ML ONE (20:56)
[2021-11-10] MEDS ORDERED: dexamethasone sod phosphate 4mg/ml inj. ONE (20:57)
[2021-11-10] MEDS ORDERED: morphine 10mg/ml inj. IV ONE (21:50)
[2021-11-10] MEDS ORDERED: labetalol 20mg/4ml (5mg/ml) syringe IV ONE (21:57)
[2021-11-10 22:23] LABS: ABG BASE EXCESS -7.7 mmol/L (-2.0-2.0); ABG HCO3 19.4 mmol/L (22.0-26.0); ABG OXYGEN SATURATION 98.4 % (94-97); ABG PCO2 (T) 43.5 mmHg (32.0-45.0); ABG PO2 (T) 177.6 mmHg (75.0-100.0); FCOHb 0.3 % (0.0-3.9); FMetHb 0.5 % (0.0-1.5); FO2Hb 97.6 % (94-97); PATIENT TEMPERATURE 35.6; PEEP 5 cm H2O; RESPIRATORY RATE 12 b/min; TIDAL VOLUME 450 mL; TOTAL HEMOGLOBIN 10.9 G/dl (12.0-16.0)
[2021-11-10 23:37] LABS: BASOPHILS # (AUTO) 0.1 X10'3 (0-0.2); BASOPHILS % (AUTO) 0.3 % (0-1); EOSINOPHILS % (AUTO) 0 % (0-6); HEMATOCRIT 29.5 % (35.0-45.0); HEMOGLOBIN 9.4 g/dl (12.0-16.0); LYMPHOCYTES # (AUTO) 1.2 X10'3 (1.1-4.8); LYMPHOCYTES % (AUTO) 6.2 % (21-51); MEAN CORPUSCULAR HEMOGLOBIN 25.7 PG (27.0-31.0); MEAN CORPUSCULAR VOLUME 80.3 FL (78-98); MEAN PLATELET VOLUME 8.9 FL (7.4-10.4); MONOCYTES # (AUTO) 1.4 X10'3 (0-0.9); NEUTROPHILS # (AUTO) 17.5 X10'3 (1.8-7.7); NEUTROPHILS % (AUTO) 86.5 % (42-75); PLATELET COUNT 105 X10'3 (140-440); RED BLOOD COUNT 3.67 X10'6 (4.20-5.60); RED CELL DISTRIBUTION WIDTH 17.3 % (11.5-14.5); WHITE BLOOD COUNT 20.2 X10'3 (4.5-11.0)
[2021-11-10 23:49] LABS: ALBUMIN 2.8 G/DL (3.4-5.0); ANION GAP 8 (8-16); BLOOD UREA NITROGEN 16 MG/DL (7-18); BUN/CREATININE RATIO 20.8 (6.6-38.0); CALCIUM 7.5 MG/DL (8.5-10.1); CHLORIDE 112 MMOL/L (99-107); CREATININE 0.77 MG/DL (0.40-0.90); GLUCOSE 215 MG/DL (70-104); POTASSIUM 3.2 MMOL/L (3.5-5.1); SODIUM 142 MMOL/L (135-145); TOTAL CARBON DIOXIDE 21.6 MMOL/L (24-32); eGFR 77 ML/MIN
[2021-11-10 23:54] LABS: MAGNESIUM 0.9 MG/DL (1.5-2.4)
[2021-11-10] MEDS ORDERED: magnesium 4gm in 100ml NS 100 ML IV PRN (23:55)
[2021-11-10] MEDS: heparin 25,000 UNIT/250ml bag 250 ML IV SCH (23:55)
[2021-11-10] MEDS ORDERED: magnesium 2GM in 50ml NS 50 ML IV PRN (23:55)
[2021-11-11] VITALS (37 sets, daily range): BP systolic 77–143; BP diastolic 41–65
[2021-11-11] MEDS: potassium Cl 20mEq/100mL bag 100 ML IV PRN ×2 (00:35→04:12)
[2021-11-11] MEDS: ceFAZolin/D5W- 1GM premix 50 ML IV SCH ×2 (01:34→10:34)
[2021-11-11] MEDS: FENTANYL-0.9 % NACL/PF 100 ML IV PRN ×2 (01:37→04:11)
[2021-11-11 03:09] LABS: ABG BASE EXCESS -5.6 mmol/L (-2.0-2.0); ABG HCO3 19.3 mmol/L (22.0-26.0); ABG OXYGEN SATURATION 96.8 % (94-97); ABG PCO2 (T) 33.8 mmHg (32.0-45.0); ABG PO2 (T) 95.1 mmHg (75.0-100.0); FMetHb 0.4 % (0.0-1.5); FO2Hb 96.4 % (94-97); PATIENT TEMPERATURE 36.3; PEEP 5 cm H2O; RESPIRATORY RATE 16 b/min; TIDAL VOLUME 450 mL; TOTAL HEMOGLOBIN 8.3 G/dl (12.0-16.0)
[2021-11-11 03:37] LABS: BASOPHILS % (AUTO) 0 % (0-1); EOSINOPHILS % (AUTO) 0 % (0-6); HEMATOCRIT 23.1 % (35.0-45.0); HEMOGLOBIN 7.6 g/dl (12.0-16.0); LYMPHOCYTES # (AUTO) 0.4 X10'3 (1.1-4.8); LYMPHOCYTES % (AUTO) 3.6 % (21-51); MEAN CORPUSCULAR HEMOGLOBIN 26.3 PG (27.0-31.0); MEAN CORPUSCULAR VOLUME 79.8 FL (78-98); MEAN PLATELET VOLUME 9.1 FL (7.4-10.4); MONOCYTES # (AUTO) 0.8 X10'3 (0-0.9); MONOCYTES % (AUTO) 7.1 % (2-12); NEUTROPHILS # (AUTO) 9.6 X10'3 (1.8-7.7); NEUTROPHILS % (AUTO) 89.3 % (42-75); PLATELET COUNT 76 X10'3 (140-440); RED BLOOD COUNT 2.89 X10'6 (4.20-5.60); RED CELL DISTRIBUTION WIDTH 17.1 % (11.5-14.5); WHITE BLOOD COUNT 10.8 X10'3 (4.5-11.0)
[2021-11-11 03:47] LABS: ALBUMIN 2.6 G/DL (3.4-5.0); ANION GAP 6 (8-16); BLOOD UREA NITROGEN 15 MG/DL (7-18); CALCIUM 7.3 MG/DL (8.5-10.1); CHLORIDE 113 MMOL/L (99-107); CREATININE 0.75 MG/DL (0.40-0.90); GLUCOSE 308 MG/DL (70-104); POTASSIUM 4.1 MMOL/L (3.5-5.1); SODIUM 140 MMOL/L (135-145); TOTAL CARBON DIOXIDE 21.2 MMOL/L (24-32); eGFR 79 ML/MIN
[2021-11-11 03:52] LABS: APTT 37 SECONDS (22-32)
[2021-11-11] MEDS: morphine 4 MG/ML inj SYRINge IV PRN (04:12)
[2021-11-11] MEDS: dextrose 5%-lactated ringers 1,000 ML IV SCH ×2 (04:25→14:38)
[2021-11-11 04:35] LABS: MAGNESIUM 2.2 MG/DL (1.5-2.4)
[2021-11-11] MEDS ORDERED: albumin (Human) 5% 250ml 250 ML IV ONE (05:05)
[2021-11-11] MEDS: insulin Lispro (HumaLOG) vial - multi-dose SQ SCH ×2 (08:02→14:35)
[2021-11-11 10:00] LABS: BASOPHILS % (AUTO) 0.1 % (0-1); EOSINOPHILS % (AUTO) 0 % (0-6); HEMOGLOBIN 8.7 g/dl (12.0-16.0); LYMPHOCYTES # (AUTO) 0.6 X10'3 (1.1-4.8); MEAN CORPUSCULAR HEMOGLOBIN 26.9 PG (27.0-31.0); MEAN CORPUSCULAR HGB CONC 33.5 g/dL (33.0-36.5); MEAN CORPUSCULAR VOLUME 80.5 FL (78-98); MEAN PLATELET VOLUME 9.5 FL (7.4-10.4); MONOCYTES % (AUTO) 10.5 % (2-12); NEUTROPHILS % (AUTO) 83.4 % (42-75); PLATELET COUNT 84 X10'3 (140-440); RED BLOOD COUNT 3.23 X10'6 (4.20-5.60); RED CELL DISTRIBUTION WIDTH 17.4 % (11.5-14.5); WHITE BLOOD COUNT 9.5 X10'3 (4.5-11.0)
[2021-11-11] MEDS: famotidine/PF 10 mg/ml inj IV SCH ×2 (10:34→19:24)
[2021-11-11] MEDS: clopidogrel 75mg tablet PO SCH (11:10)
[2021-11-11] MEDS: aspirin 81mg tab.chew PO SCH (11:10)
[2021-11-11] MEDS: amLODIPine 2.5mg tablet PO SCH (11:10)
[2021-11-11] MEDS: atorvastatin 20mg tablet PO SCH (11:11)
[2021-11-11] MEDS: ringers solution, lacted 1,000 ML IV SCH (15:00)
[2021-11-11] MEDS: NORepinephrine 8mg/ 250ml NS 250 ML IV SCH (15:54)
[2021-11-11] MEDS: acetaminophen 325mg tablet PO PRN (17:26)
[2021-11-11] MEDS: morphine 2 MG/ML inj. syringe IV PRN (19:24)
[2021-11-11] MEDS: enoxaparin 40mg/0.4ml syringe SQ SCH (19:25)
[2021-11-12] VITALS (23 sets, daily range): BP systolic 104–129; BP diastolic 40–82
[2021-11-12] MEDS: ringers solution, lacted 1,000 ML IV SCH ×2 (00:24→08:19)
[2021-11-12] MEDS ORDERED: albumin (Human) 5% 250ml 250 ML IV ONE (00:45)
[2021-11-12] MEDS: morphine 2 MG/ML inj. syringe IV PRN ×4 (00:53→17:53)
[2021-11-12 02:37] LABS: BASOPHILS % (AUTO) 0.2 % (0-1); EOSINOPHILS % (AUTO) 0 % (0-6); HEMOGLOBIN 7.2 g/dl (12.0-16.0); LYMPHOCYTES # (AUTO) 1.6 X10'3 (1.1-4.8); LYMPHOCYTES % (AUTO) 16.4 % (21-51); MEAN CORPUSCULAR HEMOGLOBIN 27.1 PG (27.0-31.0); MEAN CORPUSCULAR HGB CONC 33.5 g/dL (33.0-36.5); MEAN CORPUSCULAR VOLUME 80.9 FL (78-98); MEAN PLATELET VOLUME 9.7 FL (7.4-10.4); MONOCYTES # (AUTO) 1.2 X10'3 (0-0.9); MONOCYTES % (AUTO) 11.9 % (2-12); NEUTROPHILS # (AUTO) 7.1 X10'3 (1.8-7.7); NEUTROPHILS % (AUTO) 71.5 % (42-75); PLATELET COUNT 95 X10'3 (140-440); RED BLOOD COUNT 2.67 X10'6 (4.20-5.60); RED CELL DISTRIBUTION WIDTH 17.4 % (11.5-14.5)
[2021-11-12 02:46] LABS: ALBUMIN 2.7 G/DL (3.4-5.0); ANION GAP 7 (8-16); BLOOD UREA NITROGEN 13 MG/DL (7-18); BUN/CREATININE RATIO 17.1 (6.6-38.0); CALCIUM 7.8 MG/DL (8.5-10.1); CHLORIDE 109 MMOL/L (99-107); CREATININE 0.76 MG/DL (0.40-0.90); GLUCOSE 210 MG/DL (70-104); POTASSIUM 4.2 MMOL/L (3.5-5.1); SODIUM 140 MMOL/L (135-145); TOTAL CARBON DIOXIDE 23.9 MMOL/L (24-32); eGFR 78 ML/MIN
[2021-11-12] MEDS: mineral oil/petrolatum ophthal oint EACHEYE SCH ×4 (02:57→18:31)
[2021-11-12 03:08] LABS: HEMATOCRIT 21.6 % (35.0-45.0)
--- NOTE | 2021-11-12 04:30 | NUR ---
Pt's H & H 7.12/12.6, Dr. Krueger notified. New order received to repeat CBC @ 12 noon.
[2021-11-12] MEDS: acetaminophen 325mg tablet PO PRN ×3 (06:31→22:55)
--- NOTE | 2021-11-12 06:38 | NUR ---
Patient in room ICU 2042. I have received report from Saumya DE LA ROSA and had the opportunity to ask questions and assume patient care. Pt semi fowlers in bed, safety measures in place. chest rising and falling evenly. no s/sx acute distress
[2021-11-12] MEDS: amLODIPine 2.5mg tablet PO SCH (07:28)
[2021-11-12] MEDS: famotidine/PF 10 mg/ml inj IV SCH ×2 (08:18→19:51)
[2021-11-12] MEDS: atorvastatin 20mg tablet PO SCH (08:18)
[2021-11-12] MEDS: aspirin 81mg tab.chew PO SCH (08:19)
[2021-11-12] MEDS: clopidogrel 75mg tablet PO SCH (08:19)
[2021-11-12] MEDS: insulin Lispro (HumaLOG) vial - multi-dose SQ SCH ×2 (08:53→13:52)
--- NOTE | 2021-11-12 10:00 | NUR ---
Dr. Cabrera rounded on patient. Orders to D/C ART line, change IVF rate to TKO, recheck CBC and transfuse x1 unit of PRBC if hgb less than 7.0, and to start patient on a diet. Dr. Cabrera aware of patient's absent pulse on the right lower extremity and stated that she would go back to surgery on Sunday.
--- NOTE | 2021-11-12 11:00 | NUR ---
ART line to right radial removed. cannula intact. minimal bleeding. pressure held for 5 mins. pt tolerated well. no s/sx complication. Addendum: 11/12/21 at 1453 by Catalina Tejada RN continues without complication secondary to ART line removal.
[2021-11-12 12:54] LABS: BASOPHILS % (AUTO) 0.3 % (0-1); EOSINOPHILS % (AUTO) 0 % (0-6); HEMOGLOBIN 7.2 g/dl (12.0-16.0); LYMPHOCYTES # (AUTO) 1.3 X10'3 (1.1-4.8); MEAN CORPUSCULAR HEMOGLOBIN 27.3 PG (27.0-31.0); MEAN CORPUSCULAR HGB CONC 33.8 g/dL (33.0-36.5); MEAN CORPUSCULAR VOLUME 80.9 FL (78-98); MEAN PLATELET VOLUME 9.4 FL (7.4-10.4); MONOCYTES # (AUTO) 1.1 X10'3 (0-0.9); MONOCYTES % (AUTO) 10.5 % (2-12); NEUTROPHILS # (AUTO) 8.3 X10'3 (1.8-7.7); NEUTROPHILS % (AUTO) 77.2 % (42-75); PLATELET COUNT 114 X10'3 (140-440); RED BLOOD COUNT 2.63 X10'6 (4.20-5.60); RED CELL DISTRIBUTION WIDTH 18.2 % (11.5-14.5); WHITE BLOOD COUNT 10.8 X10'3 (4.5-11.0)
[2021-11-12 13:01] LABS: HEMATOCRIT 21.3 % (35.0-45.0)
[2021-11-12] MEDS: NORepinephrine 8mg/ 250ml NS 250 ML IV SCH (14:08)
[2021-11-12] MEDS: ceFOXitin 2GM-NS 100mL ADDvant 100 ML IV SCH ×2 (15:38→19:51)
--- NOTE | 2021-11-12 18:13 | NUR ---
Problems reprioritized. Patient report given, questions answered & plan of care reviewed with Kike RN.
[2021-11-12] MEDS: enoxaparin 40mg/0.4ml syringe SQ SCH (19:52)
[2021-11-12] MEDS: morphine 4 MG/ML inj SYRINge IV PRN (20:55)
[2021-11-13] VITALS (28 sets, daily range): BP systolic 99–155; BP diastolic 40–78
[2021-11-13] MEDS: mineral oil/petrolatum ophthal oint EACHEYE SCH ×4 (02:00→20:35)
[2021-11-13] MEDS: ceFOXitin 2GM-NS 100mL ADDvant 100 ML IV SCH ×4 (02:10→20:34)
[2021-11-13 02:50] LABS: ALBUMIN 2.4 G/DL (3.4-5.0); ANION GAP 4 (8-16); BLOOD UREA NITROGEN 9 MG/DL (7-18); BUN/CREATININE RATIO 12.3 (6.6-38.0); CALCIUM 7.9 MG/DL (8.5-10.1); CHLORIDE 108 MMOL/L (99-107); CREATININE 0.73 MG/DL (0.40-0.90); GLUCOSE 204 MG/DL (70-104); POTASSIUM 3.7 MMOL/L (3.5-5.1); SODIUM 139 MMOL/L (135-145); TOTAL CARBON DIOXIDE 27.3 MMOL/L (24-32); eGFR 82 ML/MIN
[2021-11-13 02:52] LABS: BASOPHILS % (AUTO) 0.5 % (0-1); EOSINOPHILS % (AUTO) 0.2 % (0-6); LYMPHOCYTES # (AUTO) 1.6 X10'3 (1.1-4.8); LYMPHOCYTES % (AUTO) 15.4 % (21-51); MEAN CORPUSCULAR HGB CONC 33.2 g/dL (33.0-36.5); MEAN CORPUSCULAR VOLUME 81.5 FL (78-98); MEAN PLATELET VOLUME 9.2 FL (7.4-10.4); MONOCYTES % (AUTO) 9.4 % (2-12); NEUTROPHILS # (AUTO) 7.8 X10'3 (1.8-7.7); NEUTROPHILS % (AUTO) 74.5 % (42-75); PLATELET COUNT 127 X10'3 (140-440); RED BLOOD COUNT 2.39 X10'6 (4.20-5.60); RED CELL DISTRIBUTION WIDTH 18.4 % (11.5-14.5); WHITE BLOOD COUNT 10.4 X10'3 (4.5-11.0)
[2021-11-13 03:12] LABS: HEMOGLOBIN 6.5 g/dl (12.0-16.0)
[2021-11-13 03:13] LABS: HEMATOCRIT 19.5 % (35.0-45.0)
[2021-11-13] MEDS: morphine 4 MG/ML inj SYRINge IV PRN ×2 (03:16→14:49)
--- NOTE | 2021-11-13 07:56 | NUR ---
Initial: Pt admitted w/ ischemic L leg, underwent iliofemoral bypass 11/10 per EMR, ventilated from 11/10-. Currently on Clear liquid diet pending PO documentation. Per physical assessment, Pt w/ surgical incision on abd and L leg surgical wound w/ wound vac. Recommend advancing as tolerated to carb controlled diet and will monitor need for additional protein/ONS. LBM 11/07 recommend adding routine bowel care per MD discretion. Limited nutrition intervention available at this time, will continue to monitor. Recs: 1. Advance as tolerated to Carb Controlled diet 2. Monitor need for additional protein/ONS 3. Routine bowel care; 6 days constipation 4. Scaled wts Addendum: 11/13/21 at [address] Amended: Links added.
[2021-11-13] MEDS: clopidogrel 75mg tablet PO SCH (08:08)
[2021-11-13] MEDS: aspirin 81mg tab.chew PO SCH (08:08)
[2021-11-13] MEDS: atorvastatin 20mg tablet PO SCH (08:08)
[2021-11-13] MEDS: famotidine/PF 10 mg/ml inj IV SCH ×2 (08:08→20:33)
[2021-11-13] MEDS: morphine 2 MG/ML inj. syringe IV PRN ×3 (08:09→20:32)
[2021-11-13] MEDS: amLODIPine 2.5mg tablet PO SCH (08:11)
[2021-11-13] MEDS ORDERED: HYDROmorphone 1 mg/ml syringe IV ONE (09:00)
[2021-11-13] MEDS: insulin Lispro (HumaLOG) vial - multi-dose SQ SCH ×3 (09:13→19:15)
[2021-11-13 12:51] LABS: HEMATOCRIT 25.1 % (35.0-45.0); HEMOGLOBIN 8.3 g/dl (12.0-16.0); MEAN CORPUSCULAR HEMOGLOBIN 27.6 PG (27.0-31.0); MEAN CORPUSCULAR VOLUME 83.8 FL (78-98); PLATELET COUNT 138 X10'3 (140-440); RED BLOOD COUNT 2.99 X10'6 (4.20-5.60); RED CELL DISTRIBUTION WIDTH 18.2 % (11.5-14.5); WHITE BLOOD COUNT 12.5 X10'3 (4.5-11.0)
[2021-11-13] MEDS: acetaminophen 325mg tablet PO PRN (16:59)
--- NOTE | 2021-11-13 18:24 | NUR ---
Pt is AAOx2-3. No c/o discomfort. Vitals stable. all safety and comfort measures in place. Report endorsed to oncoming nurse. Signed off.
[2021-11-13 19:48] LABS: HEMATOCRIT 24.2 % (35.0-45.0); HEMOGLOBIN 8.1 g/dl (12.0-16.0); MEAN CORPUSCULAR HEMOGLOBIN 27.9 PG (27.0-31.0); MEAN CORPUSCULAR HGB CONC 33.4 g/dL (33.0-36.5); MEAN CORPUSCULAR VOLUME 83.7 FL (78-98); PLATELET COUNT 149 X10'3 (140-440); RED BLOOD COUNT 2.89 X10'6 (4.20-5.60); RED CELL DISTRIBUTION WIDTH 18.1 % (11.5-14.5); WHITE BLOOD COUNT 11.4 X10'3 (4.5-11.0)
[2021-11-13] MEDS: lactobacillus rhamnosus 10,000 MMU CELLS/CAPSULE PO SCH (20:33)
[2021-11-13] MEDS: enoxaparin 40mg/0.4ml syringe SQ SCH (20:34)
[2021-11-14] VITALS (23 sets, daily range): BP systolic 131–164; BP diastolic 60–80
[2021-11-14] MEDS: morphine 2 MG/ML inj. syringe IV PRN ×4 (01:01→21:16)
[2021-11-14] MEDS: ceFOXitin 2GM-NS 100mL ADDvant 100 ML IV SCH ×4 (02:56→21:15)
[2021-11-14] MEDS: mineral oil/petrolatum ophthal oint EACHEYE SCH ×4 (02:56→20:00)
[2021-11-14 03:00] LABS: BASOPHILS % (AUTO) 0.4 % (0-1); EOSINOPHILS # (AUTO) 0.1 X10'3 (0-0.9); EOSINOPHILS % (AUTO) 1.3 % (0-6); HEMATOCRIT 25.3 % (35.0-45.0); HEMOGLOBIN 8.4 g/dl (12.0-16.0); LYMPHOCYTES # (AUTO) 1.8 X10'3 (1.1-4.8); LYMPHOCYTES % (AUTO) 16.9 % (21-51); MEAN CORPUSCULAR HEMOGLOBIN 28.1 PG (27.0-31.0); MEAN CORPUSCULAR HGB CONC 33.4 g/dL (33.0-36.5); MEAN CORPUSCULAR VOLUME 84.2 FL (78-98); MEAN PLATELET VOLUME 8.9 FL (7.4-10.4); MONOCYTES # (AUTO) 1.2 X10'3 (0-0.9); MONOCYTES % (AUTO) 11.7 % (2-12); NEUTROPHILS # (AUTO) 7.4 X10'3 (1.8-7.7); NEUTROPHILS % (AUTO) 69.7 % (42-75); PLATELET COUNT 166 X10'3 (140-440); RED CELL DISTRIBUTION WIDTH 18.1 % (11.5-14.5); WHITE BLOOD COUNT 10.6 X10'3 (4.5-11.0)
[2021-11-14 03:10] LABS: ALBUMIN 2.3 G/DL (3.4-5.0); ANION GAP 4 (8-16); BLOOD UREA NITROGEN 8 MG/DL (7-18); BUN/CREATININE RATIO 10.1 (6.6-38.0); CALCIUM 8.3 MG/DL (8.5-10.1); CHLORIDE 107 MMOL/L (99-107); CREATININE 0.79 MG/DL (0.40-0.90); GLUCOSE 84 MG/DL (70-104); POTASSIUM 3.5 MMOL/L (3.5-5.1); SODIUM 139 MMOL/L (135-145); TOTAL CARBON DIOXIDE 27.7 MMOL/L (24-32); eGFR 75 ML/MIN
[2021-11-14] MEDS ORDERED: morphine 2 MG/ML inj. syringe IV PRN (07:55)
[2021-11-14] MEDS: famotidine/PF 10 mg/ml inj IV SCH (08:03)
[2021-11-14] MEDS: lactobacillus rhamnosus 10,000 MMU CELLS/CAPSULE PO SCH ×2 (08:06→21:17)
[2021-11-14] MEDS: clopidogrel 75mg tablet PO SCH (08:06)
[2021-11-14] MEDS: amLODIPine 2.5mg tablet PO SCH (08:06)
[2021-11-14] MEDS: atorvastatin 20mg tablet PO SCH (08:06)
[2021-11-14] MEDS: aspirin 81mg tab.chew PO SCH (08:06)
[2021-11-14] MEDS: ringers solution, lacted 1,000 ML IV SCH (08:10)
[2021-11-14 10:08] LABS: ISTAT CL 106 mmol/L (99-107); ISTAT K 4.2 mmol/L (3.5-5.1); ISTAT NA 139 mmol/L (135-145)
[2021-11-14 10:09] LABS: ISTAT ANION GAP 13 (8-12); ISTAT BUN 14 mg/dL (7-18); ISTAT CREATININE 0.6 mg/dL (0.6-1.1); ISTAT TOTAL CO2 20 mmol/L (24-32)
[2021-11-14 10:10] LABS: ISTAT GLUCOSE 285 mg/dL (70-105); ISTAT IONIZED CALCIUM 1.13 mmol/L (1.03-1.32); ISTAT eGFR > 90 ML/MIN; POC BUN/CREATININE RATIO 23.3 (6.6-38.0)
[2021-11-14 10:11] LABS: ISTAT HGB 5.8 g/dl (12.0-16.0); ISTAT Hct 17 %PCV (35-48)
[2021-11-14 10:12] LABS: ISTAT CL 110 mmol/L (99-107); ISTAT K 3.4 mmol/L (3.5-5.1)
[2021-11-14 10:13] LABS: ISTAT ANION GAP 13 (8-12); ISTAT BUN 14 mg/dL (7-18); ISTAT CREATININE 0.6 mg/dL (0.6-1.1); ISTAT GLUCOSE 244 mg/dL (70-105); ISTAT HGB 7.1 g/dl (12.0-16.0); ISTAT Hct 21 %PCV (35-48); ISTAT IONIZED CALCIUM 1.34 mmol/L (1.03-1.32); ISTAT TOTAL CO2 19 mmol/L (24-32); ISTAT eGFR > 90 ML/MIN; POC BUN/CREATININE RATIO 23.3 (6.6-38.0)
[2021-11-14 10:14] LABS: ISTAT NA 142 mmol/L (135-145)
[2021-11-14 10:56] LABS: TOTAL HEMOGLOBIN 6.8 G/dl (12.0-16.0)
[2021-11-14] MEDS ORDERED: iohexol 350MG/ML 100ml bottle IV ONE (11:56)
[2021-11-14] MEDS ORDERED: iohexol 350 MG/ML 50ML vial IV ONE (11:56)
[2021-11-14 18:26] LABS: HEMATOCRIT 25.3 % (35.0-45.0); HEMOGLOBIN 8.6 g/dl (12.0-16.0); MEAN CORPUSCULAR HEMOGLOBIN 28.3 PG (27.0-31.0); MEAN CORPUSCULAR HGB CONC 34.1 g/dL (33.0-36.5); MEAN PLATELET VOLUME 8.7 FL (7.4-10.4); PLATELET COUNT 241 X10'3 (140-440); RED BLOOD COUNT 3.05 X10'6 (4.20-5.60); RED CELL DISTRIBUTION WIDTH 18.3 % (11.5-14.5); WHITE BLOOD COUNT 9.8 X10'3 (4.5-11.0)
--- NOTE | 2021-11-14 18:36 | NUR ---
Pt is stable. Report endorsed to oncoming shift. Signed off.
[2021-11-14] MEDS: insulin Lispro (HumaLOG) vial - multi-dose SQ SCH (19:11)
[2021-11-14] MEDS: famotidine 20mg tablet PO SCH (21:17)
[2021-11-14] MEDS: acetaminophen 325mg tablet PO PRN (21:18)
[2021-11-14] MEDS: enoxaparin 40mg/0.4ml syringe SQ SCH (21:18)
[2021-11-15] VITALS (24 sets, daily range): BP systolic 66–152; BP diastolic 45–79
[2021-11-15 01:30] LABS: HEMOGLOBIN 8.6 g/dl (12.0-16.0); MEAN CORPUSCULAR HEMOGLOBIN 28.5 PG (27.0-31.0); MEAN CORPUSCULAR HGB CONC 34.4 g/dL (33.0-36.5); MEAN CORPUSCULAR VOLUME 82.6 FL (78-98); MEAN PLATELET VOLUME 8.1 FL (7.4-10.4); PLATELET COUNT 250 X10'3 (140-440); RED BLOOD COUNT 3.03 X10'6 (4.20-5.60); RED CELL DISTRIBUTION WIDTH 18.4 % (11.5-14.5); WHITE BLOOD COUNT 9.5 X10'3 (4.5-11.0)
[2021-11-15 01:37] LABS: ALBUMIN 2.2 G/DL (3.4-5.0); ANION GAP 4 (8-16); BLOOD UREA NITROGEN 8 MG/DL (7-18); BUN/CREATININE RATIO 9.3 (6.6-38.0); CALCIUM 7.9 MG/DL (8.5-10.1); CHLORIDE 106 MMOL/L (99-107); CREATININE 0.86 MG/DL (0.40-0.90); GLUCOSE 123 MG/DL (70-104); POTASSIUM 3.3 MMOL/L (3.5-5.1); SODIUM 140 MMOL/L (135-145); TOTAL CARBON DIOXIDE 30.2 MMOL/L (24-32); eGFR 68 ML/MIN
--- NOTE | 2021-11-15 02:30 | NUR ---
Pt rhythm is AF, HR 120's. Pt shortness of breath, with bilateral wheezing. Dr. Cabrera notified of increased heart rate and status changes. New order received to start Amiodarone bolus infusion. Respiratory Therapist paged for prn breathing treatment. Addendum: 11/15/21 at 0546 by Erica Alarcon RN, RN Above nurses note @0230 is on wrong patient.
[2021-11-15] MEDS: amLODIPine 2.5mg tablet PO SCH ×2 (08:00→10:13)
[2021-11-15] MEDS: clopidogrel 75mg tablet PO SCH (08:00)
[2021-11-15] MEDS: aspirin 81mg tab.chew PO SCH (08:30)
[2021-11-15] MEDS: ceFOXitin 2GM-NS 100mL ADDvant 100 ML IV SCH ×4 (09:45→20:00)
--- NOTE | 2021-11-15 10:00 | NUR ---
ASSUMED PT CARE, DID NOT RECEIVE ANY REPORT ON PT, REVIEWED CHART FOR HISTORY AND CURRENT POC.
[2021-11-15] MEDS: morphine 2 MG/ML inj. syringe IV PRN ×2 (10:08→10:17)
[2021-11-15] MEDS ORDERED: heparin 10,000 units/1 ML INJ ONE ×2 (10:09→10:11)
[2021-11-15] MEDS: atorvastatin 20mg tablet PO SCH (10:13)
[2021-11-15] MEDS: lactobacillus rhamnosus 10,000 MMU CELLS/CAPSULE PO SCH ×2 (10:13→20:00)
[2021-11-15] MEDS: famotidine 20mg tablet PO SCH ×2 (10:13→20:00)
[2021-11-15] MEDS ORDERED: iohexol 300 MG/1 ML 50ml polymer ONE ×2 (10:14→16:52)
--- NOTE | 2021-11-15 12:00 | NUR ---
pt to OR
[2021-11-15] MEDS ORDERED: fentaNYL /PF 50mcg/ml 5ml ampule ONE ×2 (12:01→13:44)
[2021-11-15] MEDS ORDERED: midazolam 1 mg/ML 2ml injection ONE (12:01)
[2021-11-15] MEDS ORDERED: rocuronium 10mg/ml inj IV ONE ×3 (12:47→15:27)
[2021-11-15] MEDS ORDERED: LIDOcaine 2% (20mg/ml) 5ml vial ONE (12:47)
[2021-11-15] MEDS ORDERED: LIDOcaine 1% (10mg/ml) 2ml vial ONE (12:47)
[2021-11-15] MEDS ORDERED: propofol inj 20 ML IV ONE (12:47)
[2021-11-15] MEDS ORDERED: ePHEDrine 50MG/ML INJ. ONE (12:47)
[2021-11-15] MEDS ORDERED: ceFAZolin 1000mg inj ONE ×2 (13:06)
[2021-11-15] MEDS ORDERED: ceFOXitin 1000 MG inj ONE ×2 (13:30)
[2021-11-15] MEDS: mineral oil/petrolatum ophthal oint EACHEYE SCH ×2 (14:00→20:00)
[2021-11-15] MEDS ORDERED: albumin (Human) 5% 250ml 250 ML IV ONE ×5 (14:17→20:35)
[2021-11-15] MEDS ORDERED: heparin 1,000unit/ml 10ml vial 10 ML ONE (14:26)
[2021-11-15] MEDS ORDERED: midazolam 1 mg/ML 2ml injection IV ONE (14:40)
[2021-11-15] MEDS ORDERED: fentaNYL/PF 50MCG/1 ML 2ML syringe IV PRN (14:40)
[2021-11-15] MEDS ORDERED: midazolam 100mg in NS 100ml 100 ML IV PRN (14:40)
[2021-11-15] MEDS ORDERED: protamine sulfate 10mg/ml inj. ONE (16:59)
[2021-11-15 17:07] LABS: APTT 126 SECONDS (22-32)
[2021-11-15 17:26] LABS: ABG BASE EXCESS -5.1 mmol/L (-2.0-2.0); ABG HCO3 19.4 mmol/L (22.0-26.0); ABG OXYGEN SATURATION 97.6 % (94-97); ABG PO2 (T) 114.6 mmHg (75.0-100.0); FMetHb 0.4 % (0.0-1.5); FO2Hb 97.2 % (94-97); PATIENT TEMPERATURE 37.7; TOTAL HEMOGLOBIN 10.4 G/dl (12.0-16.0)
[2021-11-15] MEDS: NORepinephrine 8mg/ 250ml NS 250 ML IV SCH (18:15)
[2021-11-15] MEDS ORDERED: niCARDipine-NS 40mg/200ml IVPB 200 ML IV ONE (18:20)
[2021-11-15] MEDS: niCARDipine-NS 40mg/200ml IVPB 200 ML IV SCH (18:25)
[2021-11-15 19:28] LABS: BASOPHILS # (AUTO) 0.1 X10'3 (0-0.2); BASOPHILS % (AUTO) 0.4 % (0-1); EOSINOPHILS % (AUTO) 0.2 % (0-6); HEMATOCRIT 26.2 % (35.0-45.0); HEMOGLOBIN 8.7 g/dl (12.0-16.0); LYMPHOCYTES # (AUTO) 1.2 X10'3 (1.1-4.8); LYMPHOCYTES % (AUTO) 6.8 % (21-51); MEAN CORPUSCULAR HEMOGLOBIN 28.7 PG (27.0-31.0); MEAN CORPUSCULAR HGB CONC 33.2 g/dL (33.0-36.5); MEAN CORPUSCULAR VOLUME 86.5 FL (78-98); MEAN PLATELET VOLUME 8.5 FL (7.4-10.4); MONOCYTES # (AUTO) 2.3 X10'3 (0-0.9); MONOCYTES % (AUTO) 13.3 % (2-12); NEUTROPHILS # (AUTO) 13.6 X10'3 (1.8-7.7); NEUTROPHILS % (AUTO) 79.3 % (42-75); PLATELET COUNT 181 X10'3 (140-440); RED BLOOD COUNT 3.03 X10'6 (4.20-5.60); RED CELL DISTRIBUTION WIDTH 16.4 % (11.5-14.5); WHITE BLOOD COUNT 17.2 X10'3 (4.5-11.0)
[2021-11-15 19:39] LABS: APTT 29 SECONDS (22-32)
[2021-11-15 19:59] LABS: ALANINE AMINOTRANSFERASE 12 U/L (12-78); ALBUMIN 1.8 G/DL (3.4-5.0); ALBUMIN/GLOBULIN RATIO 1.2 (1.1-1.5); ALKALINE PHOSPHATASE 45 IU/L (46-116); ANION GAP 9 (8-16); ASPARTATE AMINO TRANSFERASE 23 U/L (10-37); BILIRUBIN,TOTAL 0.7 MG/DL (0.1-1.0); BLOOD UREA NITROGEN 11 MG/DL (7-18); BUN/CREATININE RATIO 14.1 (6.6-38.0); CHLORIDE 111 MMOL/L (99-107); CREATININE 0.78 MG/DL (0.40-0.90); GLUCOSE 199 MG/DL (70-104); MAGNESIUM 1.1 MG/DL (1.5-2.4); PHOSPHORUS 4.7 MG/DL (2.3-4.5); POTASSIUM 3.4 MMOL/L (3.5-5.1); SODIUM 141 MMOL/L (135-145); TOTAL CARBON DIOXIDE 20.6 MMOL/L (24-32); TOTAL PROTEIN 3.3 G/DL (6.4-8.2); eGFR 76 ML/MIN
[2021-11-15] MEDS: enoxaparin 40mg/0.4ml syringe SQ SCH (20:00)
[2021-11-15 20:03] LABS: CALCIUM 5.8 MG/DL (8.5-10.1)
[2021-11-15] MEDS: FENTANYL-0.9 % NACL/PF 100 ML IV PRN (20:24)
[2021-11-15 21:13] LABS: ANISOCYTOSIS 1+; PLATELET ESTIMATE NORMAL; TOTAL CELLS COUNTED 100
[2021-11-15 21:14] LABS: BURR CELLS FEW; ELLIPTOCYTES FEW; LARGE PLATELETS FEW; POLYCHROMASIA FEW
[2021-11-15] MEDS: CALCIUM GLUC 1gm/50ml NACL,iso 50 ML IV SCH ×2 (21:14→21:40)
[2021-11-15 21:46] LABS: ABG BASE EXCESS -4.5 mmol/L (-2.0-2.0); ABG OXYGEN SATURATION 98.9 % (94-97); ABG PCO2 (T) 40.8 mmHg (32.0-45.0); ABG PO2 (T) 334.6 mmHg (75.0-100.0); FCOHb 0.1 % (0.0-3.9); FMetHb 0.8 % (0.0-1.5); PATIENT TEMPERATURE 36.8; PEEP 5 cm H2O; RESPIRATORY RATE 12 b/min; TIDAL VOLUME 450 mL
[2021-11-15 22:03] LABS: MEAN CORPUSCULAR HEMOGLOBIN 29.1 PG (27.0-31.0); MEAN CORPUSCULAR HGB CONC 33.3 g/dL (33.0-36.5); MEAN CORPUSCULAR VOLUME 87.3 FL (78-98); PLATELET COUNT 130 X10'3 (140-440); RED CELL DISTRIBUTION WIDTH 15.5 % (11.5-14.5); WHITE BLOOD COUNT 12.8 X10'3 (4.5-11.0)
[2021-11-15 22:15] LABS: HEMOGLOBIN 5.5 g/dl (12.0-16.0)
[2021-11-15 22:16] LABS: HEMATOCRIT 16.6 % (35.0-45.0)
[2021-11-16] VITALS (35 sets, daily range): BP systolic 93–160; BP diastolic 51–80
[2021-11-16] MEDS: ceFOXitin 2GM-NS 100mL ADDvant 100 ML IV SCH ×4 (02:00→20:06)
[2021-11-16] MEDS: mineral oil/petrolatum ophthal oint EACHEYE SCH ×5 (02:00→19:18)
[2021-11-16] MEDS: niCARDipine-NS 40mg/200ml IVPB 200 ML IV SCH ×2 (02:25→10:25)
[2021-11-16 03:06] LABS: BASOPHILS % (AUTO) 0.3 % (0-1); EOSINOPHILS % (AUTO) 0 % (0-6); HEMATOCRIT 42.4 % (35.0-45.0); HEMOGLOBIN 13.9 g/dl (12.0-16.0); LYMPHOCYTES % (AUTO) 6.8 % (21-51); MEAN CORPUSCULAR HEMOGLOBIN 28.2 PG (27.0-31.0); MEAN CORPUSCULAR HGB CONC 32.8 g/dL (33.0-36.5); MEAN CORPUSCULAR VOLUME 86.1 FL (78-98); MEAN PLATELET VOLUME 9.2 FL (7.4-10.4); MONOCYTES % (AUTO) 14.2 % (2-12); NEUTROPHILS # (AUTO) 11.2 X10'3 (1.8-7.7); NEUTROPHILS % (AUTO) 78.7 % (42-75); PLATELET COUNT 138 X10'3 (140-440); RED BLOOD COUNT 4.92 X10'6 (4.20-5.60); RED CELL DISTRIBUTION WIDTH 15.7 % (11.5-14.5); WHITE BLOOD COUNT 14.2 X10'3 (4.5-11.0)
[2021-11-16 03:21] LABS: APTT 30 SECONDS (22-32)
[2021-11-16 03:30] LABS: ALANINE AMINOTRANSFERASE 15 U/L (12-78); ALBUMIN 2.2 G/DL (3.4-5.0); ALBUMIN/GLOBULIN RATIO 1.5 (1.1-1.5); ALKALINE PHOSPHATASE 46 IU/L (46-116); ANION GAP 12 (8-16); ASPARTATE AMINO TRANSFERASE 31 U/L (10-37); BILIRUBIN,TOTAL 0.9 MG/DL (0.1-1.0); BLOOD UREA NITROGEN 14 MG/DL (7-18); BUN/CREATININE RATIO 19.2 (6.6-38.0); CALCIUM 6.3 MG/DL (8.5-10.1); CHLORIDE 111 MMOL/L (99-107); CREATININE 0.73 MG/DL (0.40-0.90); GLUCOSE 230 MG/DL (70-104); MAGNESIUM 1.3 MG/DL (1.5-2.4); PHOSPHORUS 5.3 MG/DL (2.3-4.5); POTASSIUM 5.1 MMOL/L (3.5-5.1); SODIUM 140 MMOL/L (135-145); TOTAL CARBON DIOXIDE 17.1 MMOL/L (24-32); TOTAL PROTEIN 3.7 G/DL (6.4-8.2); eGFR 82 ML/MIN
[2021-11-16 04:21] LABS: ABG HCO3 17.1 mmol/L (22.0-26.0); ABG OXYGEN SATURATION 94.7 % (94-97); ABG PCO2 (T) 38.3 mmHg (32.0-45.0); ABG PO2 (T) 77.9 mmHg (75.0-100.0); FCOHb 0.5 % (0.0-3.9); FMetHb 0.4 % (0.0-1.5); FO2Hb 93.8 % (94-97); PATIENT TEMPERATURE 37.3; PEEP 5 cm H2O; RESPIRATORY RATE 12 b/min; TIDAL VOLUME 450 mL; TOTAL HEMOGLOBIN 14.4 G/dl (12.0-16.0)
[2021-11-16] MEDS ORDERED: magnesium 2GM in 50ml NS 50 ML IV ONE (04:30)
[2021-11-16 04:36] LABS: PLATELET ESTIMATE DECREASED; TOTAL CELLS COUNTED 100
[2021-11-16 04:37] LABS: BURR CELLS 2+; LARGE PLATELETS FEW
[2021-11-16 04:38] LABS: ELLIPTOCYTES FEW
[2021-11-16 04:39] LABS: ANISOCYTOSIS FEW
[2021-11-16] MEDS: CALCIUM GLUC 1gm/50ml NACL,iso 50 ML IV SCH ×2 (05:36→05:38)
[2021-11-16] MEDS: amLODIPine 2.5mg tablet PO SCH (07:56)
[2021-11-16] MEDS: clopidogrel 75mg tablet PO SCH (08:00)
[2021-11-16] MEDS: lactobacillus rhamnosus 10,000 MMU CELLS/CAPSULE PO SCH ×2 (08:00→19:17)
[2021-11-16] MEDS: atorvastatin 20mg tablet PO SCH (08:00)
[2021-11-16] MEDS: aspirin 81mg tab.chew PO SCH (08:01)
[2021-11-16] MEDS: FENTANYL-0.9 % NACL/PF 100 ML IV PRN (08:01)
[2021-11-16] MEDS: famotidine 20mg tablet PO SCH ×2 (08:01→19:17)
[2021-11-16 08:14] LABS: ISTAT ANION GAP 14 (8-12); ISTAT CL 105 mmol/L (99-107); ISTAT K 4.2 mmol/L (3.5-5.1); ISTAT NA 139 mmol/L (135-145); ISTAT TOTAL CO2 20 mmol/L (24-32)
[2021-11-16 08:15] LABS: ISTAT BUN 9 mg/dL (7-18); ISTAT CREATININE 0.5 mg/dL (0.6-1.1); ISTAT GLUCOSE 234 mg/dL (70-105); ISTAT HGB 9.2 g/dl (12.0-16.0); ISTAT Hct 27 %PCV (35-48); ISTAT IONIZED CALCIUM 1.01 mmol/L (1.03-1.32); ISTAT eGFR > 90 ML/MIN
[2021-11-16] MEDS: NORepinephrine 8mg/ 250ml NS 250 ML IV SCH (09:23)
[2021-11-16] MEDS: ringers solution, lacted 1,000 ML IV SCH (10:55)
[2021-11-16] MEDS ORDERED: albumin (human) 25% 100 ML IV solution IV ONE (10:55)
--- NOTE | 2021-11-16 11:00 | NUR ---
Rounds note: with Dr. Foote Discussed patient current lack of urine output and received orders to give 200 mL of 25% Albumin, maintaining a CVP of about 8, if this is not successful give another 500 mL of 5% Albumin. Also received orders to redraw CBC, CMP, Mg, Phos, PT/INR, PTT, and LA. Last was told that if the current NG tube is not working then it is okay to place a new one.
--- NOTE | 2021-11-16 11:16 | NUR ---
Reassessment: Pt NPO now intubated s/p R Ileofemoral and fem-peroneal bypasses yesterday per EMR. MAP 72 w/ NG in place to suction this AM during rounds. LBM 11/07; MD aware to hold bowel regimen at this time s/p multiple units of blood and hypotension post-op. Pt 75-100% 5 full liquids meals since admit 8 days. IF pt remains intubated would benefit from EN via NG to optimize nutrition status. Given restrictive diet vs NPO 8 days, mild weakness, and L foot +2 pitting edema pt meets minimum non-severe malnutrition criteria; MD notified. Will continue to monitor for further nutrition intervention needs on vent. Recs: 1. IF prolonged intubation; consider NG feeds given day 8 poor nutrition status 2. Upon extubation; advance diet as medically indicated to carb controlled 3. bowel care per MD; 9 days constipation 4. Scaled wt this admit; subsequent weekly wts Addendum: 11/16/21 at [address] Amended: Links added.
[2021-11-16 11:27] LABS: BASOPHILS % (AUTO) 0.2 % (0-1); EOSINOPHILS % (AUTO) 0 % (0-6); HEMATOCRIT 36.5 % (35.0-45.0); HEMOGLOBIN 12.5 g/dl (12.0-16.0); LYMPHOCYTES # (AUTO) 1.1 X10'3 (1.1-4.8); LYMPHOCYTES % (AUTO) 8.5 % (21-51); MEAN CORPUSCULAR HEMOGLOBIN 28.7 PG (27.0-31.0); MEAN CORPUSCULAR HGB CONC 34.2 g/dL (33.0-36.5); MEAN CORPUSCULAR VOLUME 84.1 FL (78-98); MONOCYTES # (AUTO) 2.2 X10'3 (0-0.9); MONOCYTES % (AUTO) 16.6 % (2-12); NEUTROPHILS # (AUTO) 9.7 X10'3 (1.8-7.7); NEUTROPHILS % (AUTO) 74.7 % (42-75); PLATELET COUNT 150 X10'3 (140-440); RED BLOOD COUNT 4.34 X10'6 (4.20-5.60)
[2021-11-16 11:36] LABS: APTT 28 SECONDS (22-32)
[2021-11-16 11:41] LABS: ALANINE AMINOTRANSFERASE 12 U/L (12-78); ALBUMIN 2.1 G/DL (3.4-5.0); ALBUMIN/GLOBULIN RATIO 1.2 (1.1-1.5); ALKALINE PHOSPHATASE 46 IU/L (46-116); ANION GAP 11 (8-16); ASPARTATE AMINO TRANSFERASE 16 U/L (10-37); BILIRUBIN,TOTAL 0.6 MG/DL (0.1-1.0); BLOOD UREA NITROGEN 15 MG/DL (7-18); BUN/CREATININE RATIO 10.9 (6.6-38.0); CALCIUM 6.8 MG/DL (8.5-10.1); CHLORIDE 111 MMOL/L (99-107); CREATININE 1.38 MG/DL (0.40-0.90); GLUCOSE 201 MG/DL (70-104); MAGNESIUM 1.7 MG/DL (1.5-2.4); PHOSPHORUS 5.4 MG/DL (2.3-4.5); POTASSIUM 4.5 MMOL/L (3.5-5.1); SODIUM 141 MMOL/L (135-145); TOTAL CARBON DIOXIDE 19.4 MMOL/L (24-32); TOTAL PROTEIN 3.8 G/DL (6.4-8.2); eGFR 39 ML/MIN
[2021-11-16 11:59] LABS: TOTAL CELLS COUNTED 100
[2021-11-16 12:00] LABS: ANISOCYTOSIS 1+; PLATELET ESTIMATE NORMAL; POLYCHROMASIA 1+
--- NOTE | 2021-11-16 14:00 | NUR ---
Dr. Cabrera rounded on patient and stated that the NG tube could come out, we can wean to extubate, run an ionized calcium, and okay to change dressings as needed.
[2021-11-16] MEDS: insulin Lispro (HumaLOG) vial - multi-dose SQ SCH (14:10)
--- NOTE | 2021-11-16 14:15 | NUR ---
NG tube d/c'd per Dr. Cabrera's order. Patient tolerated well.
--- NOTE | 2021-11-16 16:00 | NUR ---
Per Dr. Foote, holding off on extubation until tomorrow. Leave off of Versed and Fentanyl and start on Precedex.
[2021-11-16] MEDS: dexmedetomidine/D5W 100mL 100 ML IV SCH ×2 (16:29→23:32)
[2021-11-16] MEDS: enoxaparin 40mg/0.4ml syringe SQ SCH (20:06)
[2021-11-17] VITALS (27 sets, daily range): BP systolic 118–165; BP diastolic 51–73
[2021-11-17] MEDS: mineral oil/petrolatum ophthal oint EACHEYE SCH ×4 (02:00→07:35)
[2021-11-17] MEDS: ceFOXitin 2GM-NS 100mL ADDvant 100 ML IV SCH ×4 (02:24→20:55)
[2021-11-17 02:40] LABS: BASOPHILS % (AUTO) 0.1 % (0-1); EOSINOPHILS % (AUTO) 0 % (0-6); HEMATOCRIT 27.6 % (35.0-45.0); HEMOGLOBIN 9.3 g/dl (12.0-16.0); LYMPHOCYTES # (AUTO) 0.7 X10'3 (1.1-4.8); LYMPHOCYTES % (AUTO) 5.9 % (21-51); MEAN CORPUSCULAR HEMOGLOBIN 29.1 PG (27.0-31.0); MEAN CORPUSCULAR HGB CONC 33.8 g/dL (33.0-36.5); MEAN PLATELET VOLUME 8.9 FL (7.4-10.4); MONOCYTES # (AUTO) 1.6 X10'3 (0-0.9); MONOCYTES % (AUTO) 13.1 % (2-12); NEUTROPHILS # (AUTO) 9.9 X10'3 (1.8-7.7); NEUTROPHILS % (AUTO) 80.9 % (42-75); PLATELET COUNT 164 X10'3 (140-440); RED CELL DISTRIBUTION WIDTH 16.4 % (11.5-14.5); WHITE BLOOD COUNT 12.2 X10'3 (4.5-11.0)
[2021-11-17 03:00] LABS: ALBUMIN 2.6 G/DL (3.4-5.0); ANION GAP 11 (8-16); BLOOD UREA NITROGEN 21 MG/DL (7-18); BUN/CREATININE RATIO 24.1 (6.6-38.0); CALCIUM 6.6 MG/DL (8.5-10.1); CHLORIDE 114 MMOL/L (99-107); CREATININE 0.87 MG/DL (0.40-0.90); GLUCOSE 239 MG/DL (70-104); POTASSIUM 3.8 MMOL/L (3.5-5.1); SODIUM 143 MMOL/L (135-145); TOTAL CARBON DIOXIDE 18.3 MMOL/L (24-32); eGFR 67 ML/MIN
[2021-11-17 03:00] LABS: ABG BASE EXCESS -6.5 mmol/L (-2.0-2.0); ABG HCO3 16.9 mmol/L (22.0-26.0); ABG OXYGEN SATURATION 91.4 % (94-97); ABG PCO2 (T) 27.5 mmHg (32.0-45.0); FCOHb 0.3 % (0.0-3.9); FMetHb 0.1 % (0.0-1.5); PATIENT TEMPERATURE 37.4; PEEP 5 cm H2O; RESPIRATORY RATE 12 b/min; TIDAL VOLUME 450 mL
[2021-11-17] MEDS: insulin Lispro (HumaLOG) vial - multi-dose SQ SCH ×4 (04:03→20:57)
[2021-11-17] MEDS: dexmedetomidine/D5W 100mL 100 ML IV SCH (04:50)
--- NOTE | 2021-11-17 08:24 | NUR ---
Dr. Foote gave order to extubate patient. With x1 RT and x2 RN bedside patient was prepared for extubation. Nasal cannula prepared, patient sat up tall in bed, back of the throat suctioned, and ET securement removed. Cuff deflated and patient was extubated at 0820. Nasal cannula place on the patient at 4L. Patient tolerated well.
[2021-11-17] MEDS: clopidogrel 75mg tablet PO SCH (11:40)
[2021-11-17] MEDS: aspirin 81mg tab.chew PO SCH (11:40)
[2021-11-17] MEDS: lactobacillus rhamnosus 10,000 MMU CELLS/CAPSULE PO SCH ×2 (11:40→20:55)
[2021-11-17] MEDS: famotidine 20mg tablet PO SCH ×2 (11:40→20:55)
[2021-11-17] MEDS: amLODIPine 2.5mg tablet PO SCH (11:40)
[2021-11-17] MEDS: atorvastatin 20mg tablet PO SCH (11:41)
[2021-11-17] MEDS ORDERED: furosemide 20 MG/2 ML vial IV ONE (14:35)
[2021-11-17] MEDS: morphine 2 MG/ML inj. syringe IV PRN ×2 (17:00→20:55)
[2021-11-17] MEDS: acetaminophen 325mg tablet PO PRN (17:00)
[2021-11-17] MEDS: enoxaparin 40mg/0.4ml syringe SQ SCH (20:55)
[2021-11-17] MEDS ORDERED: LORazepam 2 mg/ml vial IM ONE (23:50)
[2021-11-18] VITALS (24 sets, daily range): BP systolic 136–169; BP diastolic 60–85
[2021-11-18] MEDS: ceFOXitin 2GM-NS 100mL ADDvant 100 ML IV SCH ×4 (01:28→20:41)
[2021-11-18] MEDS: insulin Lispro (HumaLOG) vial - multi-dose SQ SCH ×4 (02:18→20:48)
[2021-11-18 03:02] LABS: BASOPHILS % (AUTO) 0.2 % (0-1); EOSINOPHILS % (AUTO) 0.1 % (0-6); HEMATOCRIT 27.4 % (35.0-45.0); HEMOGLOBIN 9.1 g/dl (12.0-16.0); LYMPHOCYTES # (AUTO) 1.1 X10'3 (1.1-4.8); LYMPHOCYTES % (AUTO) 8.1 % (21-51); MEAN CORPUSCULAR HEMOGLOBIN 28.7 PG (27.0-31.0); MEAN CORPUSCULAR HGB CONC 33.1 g/dL (33.0-36.5); MEAN CORPUSCULAR VOLUME 86.5 FL (78-98); MEAN PLATELET VOLUME 8.6 FL (7.4-10.4); MONOCYTES # (AUTO) 1.4 X10'3 (0-0.9); MONOCYTES % (AUTO) 10.8 % (2-12); NEUTROPHILS # (AUTO) 10.6 X10'3 (1.8-7.7); NEUTROPHILS % (AUTO) 80.8 % (42-75); PLATELET COUNT 238 X10'3 (140-440); RED BLOOD COUNT 3.17 X10'6 (4.20-5.60); RED CELL DISTRIBUTION WIDTH 16.3 % (11.5-14.5); WHITE BLOOD COUNT 13.1 X10'3 (4.5-11.0)
[2021-11-18 03:15] LABS: ALBUMIN 2.4 G/DL (3.4-5.0); ANION GAP 9 (8-16); BLOOD UREA NITROGEN 20 MG/DL (7-18); BUN/CREATININE RATIO 28.2 (6.6-38.0); CALCIUM 7.1 MG/DL (8.5-10.1); CHLORIDE 113 MMOL/L (99-107); CREATININE 0.71 MG/DL (0.40-0.90); GLUCOSE 159 MG/DL (70-104); SODIUM 146 MMOL/L (135-145); TOTAL CARBON DIOXIDE 23.8 MMOL/L (24-32); eGFR 85 ML/MIN
[2021-11-18] MEDS: potassium Cl 20mEq/100mL bag 100 ML IV PRN ×3 (03:49→11:37)
[2021-11-18] MEDS: ringers solution, lacted 1,000 ML IV SCH (05:42)
--- NOTE | 2021-11-18 06:14 | NUR ---
Bedside shift report given to ESTRELLA Ferrara. Addendum: 11/18/21 at 0624 by Keke Alarcon RN Bedside shift report given to Rimma
--- NOTE | 2021-11-18 06:49 | NUR ---
Patient in room ICU 2042. I have received report from Keke DE LA ROSA and had the opportunity to ask questions and assume patient care.
[2021-11-18] MEDS: clopidogrel 75mg tablet PO SCH (07:03)
[2021-11-18] MEDS: lactobacillus rhamnosus 10,000 MMU CELLS/CAPSULE PO SCH ×2 (07:03→20:39)
[2021-11-18] MEDS: famotidine 20mg tablet PO SCH ×2 (07:03→20:39)
[2021-11-18] MEDS: atorvastatin 20mg tablet PO SCH (07:03)
[2021-11-18] MEDS: amLODIPine 2.5mg tablet PO SCH (07:03)
[2021-11-18] MEDS: morphine 2 MG/ML inj. syringe IV PRN ×2 (07:07→20:40)
[2021-11-18] MEDS: aspirin 81mg tab.chew PO SCH (08:11)
[2021-11-18] MEDS ORDERED: bisacodyl 10mg suppository rectal RC PRN (10:50)
[2021-11-18] MEDS ORDERED: acetaminophen 325mg tablet PO PRN (12:20)
[2021-11-18] MEDS ORDERED: metoprolol tartrate 1mg/ml inj IV PRN (12:20)
[2021-11-18] MEDS: polyethylene glycol 3350 17gm powd pack PO SCH ×5 (13:23→19:00)
[2021-11-18] MEDS: HYDROcodone/acetaminophen 5mg/325mg tablet PO PRN (13:23)
[2021-11-18] MEDS: acetaminophen 325mg tablet PO PRN (17:43)
--- NOTE | 2021-11-18 18:26 | NUR ---
Problems reprioritized. Patient report given, questions answered & plan of care reviewed with Keke RN.
[2021-11-18] MEDS: enoxaparin 40mg/0.4ml syringe SQ SCH (20:40)
[2021-11-18] MEDS ORDERED: polyethylene glycol 3350 17gm powd pack PO SCH (21:00)
[2021-11-19] VITALS (10 sets, daily range): BP systolic 131–159; BP diastolic 59–82
[2021-11-19] MEDS: ceFOXitin 2GM-NS 100mL ADDvant 100 ML IV SCH ×4 (01:36→19:56)
--- NOTE | 2021-11-19 04:46 | NUR ---
Patient transferred to [facility]. Alert and oriented X4. Oriented to room and call palacios system. Call palacios in reach and belongings. Wound vac in place. Patient request suction program supervisor. No complaints of pain at this time. Will continue to monitor.
--- NOTE | 2021-11-19 04:48 | NUR ---
Report called to ESTRELLA Reardon on tele unit. Receiving RN at bedside to receive pt AOX4 and in stable condition.
[2021-11-19] MEDS: HYDROcodone/acetaminophen 5mg/325mg tablet PO PRN ×2 (05:27→22:31)
[2021-11-19 07:36] LABS: BASOPHILS % (AUTO) 0.4 % (0-1); EOSINOPHILS # (AUTO) 0.1 X10'3 (0-0.9); HEMOGLOBIN 10.2 g/dl (12.0-16.0); LYMPHOCYTES # (AUTO) 0.9 X10'3 (1.1-4.8); LYMPHOCYTES % (AUTO) 8.1 % (21-51); MEAN CORPUSCULAR HEMOGLOBIN 29.5 PG (27.0-31.0); MEAN CORPUSCULAR VOLUME 86.8 FL (78-98); MEAN PLATELET VOLUME 8.2 FL (7.4-10.4); MONOCYTES # (AUTO) 0.8 X10'3 (0-0.9); NEUTROPHILS # (AUTO) 9.2 X10'3 (1.8-7.7); NEUTROPHILS % (AUTO) 83.5 % (42-75); PLATELET COUNT 324 X10'3 (140-440); RED BLOOD COUNT 3.46 X10'6 (4.20-5.60); RED CELL DISTRIBUTION WIDTH 15.9 % (11.5-14.5)
[2021-11-19 08:00] LABS: ALBUMIN 2.5 G/DL (3.4-5.0); ANION GAP 8 (8-16); BLOOD UREA NITROGEN 11 MG/DL (7-18); BUN/CREATININE RATIO 16.4 (6.6-38.0); CALCIUM 7.4 MG/DL (8.5-10.1); CHLORIDE 106 MMOL/L (99-107); CREATININE 0.67 MG/DL (0.40-0.90); GLUCOSE 145 MG/DL (70-104); POTASSIUM 3.8 MMOL/L (3.5-5.1); SODIUM 142 MMOL/L (135-145); TOTAL CARBON DIOXIDE 28.1 MMOL/L (24-32); eGFR 90 ML/MIN
[2021-11-19] MEDS: famotidine 20mg tablet PO SCH ×2 (08:12→19:56)
[2021-11-19] MEDS: lactobacillus rhamnosus 10,000 MMU CELLS/CAPSULE PO SCH ×2 (08:12→19:56)
[2021-11-19] MEDS: atorvastatin 20mg tablet PO SCH (08:13)
[2021-11-19] MEDS: clopidogrel 75mg tablet PO SCH (08:13)
[2021-11-19] MEDS: amLODIPine 2.5mg tablet PO SCH (08:14)
[2021-11-19 08:55] LABS: PLATELET ESTIMATE NORMAL; POLYCHROMASIA FEW; SCHISTOCYTES FEW
--- NOTE | 2021-11-19 12:52 | NUR ---
Reassessment: Pt extubated 11/17 and diet was advanced to pureed food with thin liquids per ST recs following BSS. Since extubation PO intake has been poor with mostly 0-25% PO intake of meals, though up to 75-100% PO intake of breakfast this morning. No nutrition intervention implemented at this time in view of significant improvement in PO intake today. IF PO intake declines pt would benefit from ONS to assist with meeting estimated nutrient needs and wound healing. LBM 11/18, first BM since 11/07 per EMR following additional admin of bowel care. Resolution in constipation possibly assisting with increased appetite and PO intake. Will continue to follow closely and make recommendations as appropriate. Recommendations: 1. Continue pureed diet with thin liquids per ST recs; IF PO intake improves consider the addition of CHO controlled diet 2. Monitor need for ONS/additional protein pending further trends in PO intake 3. Routine bowel care; previous 11 days constipated 4. Weekly scaled weights Addendum: 11/19/21 at [address] Amended: Links added.
[2021-11-19] MEDS ORDERED: albuterol 2.5 MG/3 ML nebule NEB PRN (16:20)
[2021-11-19] MEDS: aspirin 81mg tab.chew PO SCH (16:46)
[2021-11-19] MEDS: HYDROchlorothiazide 25mg tablet PO SCH (19:56)
[2021-11-19] MEDS: enoxaparin 40mg/0.4ml syringe SQ SCH (19:57)
[2021-11-19] MEDS: insulin Lispro (HumaLOG) vial - multi-dose SQ SCH (22:30)
[2021-11-20 00:15] VITALS: BP 156/65
[2021-11-20 02:00] VITALS: BP 144/72
[2021-11-20] MEDS: ceFOXitin 2GM-NS 100mL ADDvant 100 ML IV SCH ×4 (02:57→20:00)
--- NOTE | 2021-11-20 06:34 | NUR ---
Problems reprioritized. Patient report given, questions answered & plan of care reviewed with luz.
[2021-11-20 06:55] LABS: ALBUMIN 2.4 G/DL (3.4-5.0); ANION GAP 4 (8-16); BLOOD UREA NITROGEN 9 MG/DL (7-18); BUN/CREATININE RATIO 11.4 (6.6-38.0); CHLORIDE 104 MMOL/L (99-107); CREATININE 0.79 MG/DL (0.40-0.90); GLUCOSE 208 MG/DL (70-104); POTASSIUM 3.6 MMOL/L (3.5-5.1); SODIUM 140 MMOL/L (135-145); TOTAL CARBON DIOXIDE 31.7 MMOL/L (24-32); eGFR 75 ML/MIN
[2021-11-20] MEDS: famotidine 20mg tablet PO SCH ×2 (09:19→20:06)
[2021-11-20] MEDS: clopidogrel 75mg tablet PO SCH (09:19)
[2021-11-20] MEDS: lactobacillus rhamnosus 10,000 MMU CELLS/CAPSULE PO SCH ×2 (09:20→20:06)
[2021-11-20] MEDS: HYDROchlorothiazide 25mg tablet PO SCH (09:20)
[2021-11-20] MEDS: aspirin 81mg tab.chew PO SCH (09:20)
[2021-11-20] MEDS: amLODIPine 2.5mg tablet PO SCH (09:20)
[2021-11-20] MEDS: atorvastatin 20mg tablet PO SCH (09:20)
[2021-11-20] MEDS: enoxaparin 40mg/0.4ml syringe SQ SCH (09:21)
[2021-11-20] MEDS: HYDROcodone/acetaminophen 5mg/325mg tablet PO PRN ×2 (09:32→17:43)
[2021-11-20 11:00] VITALS: BP 125/63
[2021-11-20 15:00] VITALS: BP 153/73
[2021-11-20] MEDS: insulin Lispro (HumaLOG) vial - multi-dose SQ SCH ×2 (16:57→19:01)
[2021-11-20] MEDS: ringers solution, lacted 1,000 ML IV SCH (17:13)
[2021-11-20 18:00] VITALS: BP 166/89
--- NOTE | 2021-11-20 20:09 | NUR ---
2000 ABX not given. order is to be given Q6 hrs last dose given at 1713
[2021-11-20 22:00] VITALS: BP 129/69
[2021-11-21] MEDS: ceFOXitin 2GM-NS 100mL ADDvant 100 ML IV SCH ×2 (01:03→09:47)
[2021-11-21] MEDS: HYDROcodone/acetaminophen 5mg/325mg tablet PO PRN ×2 (01:19→09:47)
[2021-11-21 02:00] VITALS: BP 138/81
[2021-11-21 06:00] VITALS: BP 117/85
[2021-11-21 07:37] LABS: ALBUMIN 2.4 G/DL (3.4-5.0); ANION GAP 5 (8-16); BLOOD UREA NITROGEN 10 MG/DL (7-18); BUN/CREATININE RATIO 13.3 (6.6-38.0); CALCIUM 8.3 MG/DL (8.5-10.1); CHLORIDE 103 MMOL/L (99-107); CREATININE 0.75 MG/DL (0.40-0.90); GLUCOSE 145 MG/DL (70-104); POTASSIUM 3.6 MMOL/L (3.5-5.1); SODIUM 140 MMOL/L (135-145); TOTAL CARBON DIOXIDE 31.9 MMOL/L (24-32); eGFR 79 ML/MIN
[2021-11-21] MEDS ORDERED: iohexol 300mg/ml 100ml inj. ONE (08:57)
[2021-11-21] MEDS: atorvastatin 20mg tablet PO SCH (09:48)
[2021-11-21] MEDS: amLODIPine 2.5mg tablet PO SCH (09:48)
[2021-11-21] MEDS: clopidogrel 75mg tablet PO SCH (09:48)
[2021-11-21] MEDS: famotidine 20mg tablet PO SCH (09:48)
[2021-11-21] MEDS: lactobacillus rhamnosus 10,000 MMU CELLS/CAPSULE PO SCH (09:48)
[2021-11-21] MEDS: aspirin 81mg tab.chew PO SCH (09:48)
[2021-11-21] MEDS: HYDROchlorothiazide 25mg tablet PO SCH (09:49)
[2021-11-21 11:00] VITALS: BP 161/70
== END 2021-11-21 15:42 | DRG 270 ==
LOC: ER 15:24 → ED HOLD 22:51 → PCU 3S 11-09 23:51 → ICU 2S 11-10 20:08 → PCU 3S 11-19 04:37
PROVIDERS: ADMIT Internal Medicine; ATTEND Internal Medicine
PROC: B42G1ZZ Computerized Tomography (CT Scan) of Left Lower Extremity Arteries using Low Osmolar Contrast (ICD-10-PCS; 2021-11-08)
PROC: 4A02XM4 Measurement of Cardiac Total Activity, External Approach (ICD-10-PCS; 2021-11-09)
PROC: 3E073KZ Introduction of Other Diagnostic Substance into Coronary Artery, Percutaneous Approach (ICD-10-PCS; 2021-11-09)
PROC: B41G1ZZ Fluoroscopy of Left Lower Extremity Arteries using Low Osmolar Contrast (ICD-10-PCS; 2021-11-09)
PROC: B41F1ZZ Fluoroscopy of Right Lower Extremity Arteries using Low Osmolar Contrast (ICD-10-PCS; 2021-11-09)
PROC: 04CD0ZZ Extirpation of Matter from Left Common Iliac Artery, Open Approach (ICD-10-PCS; 2021-11-10)
PROC: 04UD0JZ Supplement Left Common Iliac Artery with Synthetic Substitute, Open Approach (ICD-10-PCS; 2021-11-10)
PROC: 04CL0ZZ Extirpation of Matter from Left Femoral Artery, Open Approach (ICD-10-PCS; 2021-11-10)
PROC: 30233N1 Transfusion of Nonautologous Red Blood Cells into Peripheral Vein, Percutaneous Approach (ICD-10-PCS; 2021-11-10)
PROC: 041L0KQ Bypass Left Femoral Artery to Lower Extremity Artery with Nonautologous Tissue Substitute, Open Approach (ICD-10-PCS; 2021-11-10)
PROC: 041D0JJ Bypass Left Common Iliac Artery to Left Femoral Artery with Synthetic Substitute, Open Approach (ICD-10-PCS; principal; 2021-11-10 16:06)
PROC: B4201ZZ Computerized Tomography (CT Scan) of Abdominal Aorta using Low Osmolar Contrast (ICD-10-PCS; 2021-11-14)
PROC: B42H1ZZ Computerized Tomography (CT Scan) of Bilateral Lower Extremity Arteries using Low Osmolar Contrast (ICD-10-PCS; 2021-11-14)
PROC: B42H1ZZ Computerized Tomography (CT Scan) of Bilateral Lower Extremity Arteries using Low Osmolar Contrast (ICD-10-PCS; 2021-11-14)
PROC: 041C0JH Bypass Right Common Iliac Artery to Right Femoral Artery with Synthetic Substitute, Open Approach (ICD-10-PCS; 2021-11-15)
PROC: 041 Lower Arteries, Bypass (ICD-10-PCS; 2021-11-15)
PROC: 0BCB8ZZ Extirpation of Matter from Left Lower Lobe Bronchus, Via Natural or Artificial Opening Endoscopic (ICD-10-PCS; 2021-11-15)
DX: T82.898A Other specified complication of vascular prosthetic devices, implants and grafts, initial encounter (principal); J96.00 Acute respiratory failure, unspecified whether with hypoxia or hypercapnia; J98.11 Atelectasis; D62 Acute posthemorrhagic anemia; T17.590A Other foreign object in bronchus causing asphyxiation, initial encounter; Z20.822 Contact with and (suspected) exposure to COVID-19; E11.42 Type 2 diabetes mellitus with diabetic polyneuropathy; F41.9 Anxiety disorder, unspecified; F32.A Depression, unspecified; E83.42 Hypomagnesemia; E11.51 Type 2 diabetes mellitus with diabetic peripheral angiopathy without gangrene; L03.032 Cellulitis of left toe; I70.223 Atherosclerosis of native arteries of extremities with rest pain, bilateral legs; I10 Essential (primary) hypertension; Y82.8 Other medical devices associated with adverse incidents; G89.29 Other chronic pain; Z72.0 Tobacco use; Z79.4 Long term (current) use of insulin; Z79.899 Other long term (current) drug therapy; Y92.89 Other specified places as the place of occurrence of the external cause; I95.9 Hypotension, unspecified; E83.51 Hypocalcemia; Z79.02 Long term (current) use of antithrombotics/antiplatelets; Z71.6 Tobacco abuse counseling; X58.XXXA Exposure to other specified factors, initial encounter; Y93.89 Activity, other specified; Y92.230 Patient room in hospital as the place of occurrence of the external cause; Y99.8 Other external cause status
CPT/HCPCS: 31645; 36245; 36415; 36430; 36600; 71045; 73590; 73706; 74018; 75635; 75716; 76937; 77002; 78452; 80047; 80048; 80053; 82330; 82803; 82948; 83036; 83605; 83735; 84100; 84132; 85007; 85008; 85018; 85025; 85027; 85347; 85610; 85730; 86885; 86900; 86901; 86920; 87070; 87081; 87635; 88300; 92508; 92616; 93017; 93922; 93925; 93971; 94002; 94003; 94760; 97110; 97161; 97530; 99152; 99153; 99285; A4215; A4618; A6258; A7000; A7526; A9500; C1758; C1760; C1762; C1768; C1769; C1894; C9250; C9803; G0269; G0378; J0610; J0690; J0694; J1100; J1170; J1580; J1644; J1650; J1815; J1940; J2060; J2250; J2270; J2370; J2704; J2720; J2785; J3010; J3475; J3480; J3490; J7030; J7040; J7120; J7121; P9016; P9045; P9047; Q9967

== ENCOUNTER 2022-02-15 12:56 | Emergency (ER) | payer MEDICARE, MEDICAID ==
[~2022-02-15] VITALS: Ht 152.4 cm; Wt 59.6 kg
[~2022-02-15 12:56] MED LIST changes: -APIX5TAB3 PO; +ATOR40TA72 PO; -ATOR80TA13 PO; -CEPH-585 PO; -CILO50TA2 PO; +CITA20TA26 PO; -HYDR-3965 PO; -NITR0.4T51 SL; -VARE1TAB21 PO; -VENL150C58 PO; -sevoflurane 250ml liquid IH ONE
[2022-02-15 17:07] VITALS: BP 140/77
== END 2022-02-15 18:00 | disposition home or self-care (01) ==
LOC: ER 12:57
DX: M79.671 Pain in right foot (principal); E11.42 Type 2 diabetes mellitus with diabetic polyneuropathy; F17.200 Nicotine dependence, unspecified, uncomplicated; Z98.890 Other specified postprocedural states; Z79.4 Long term (current) use of insulin; Z79.899 Other long term (current) drug therapy
CPT/HCPCS: 99282

== ENCOUNTER 2022-02-21 12:38 | Outpatient (CLI) | payer MEDICARE, MEDICAID ==
[2022-02-21] MEDS ORDERED: APIX2.5T PO (15:57)
== END 2022-02-21 23:59 | disposition home or self-care (01) ==
LOC: VAS 12:38
PROVIDERS: ATTEND Surgery
DX: I70.203 Unspecified atherosclerosis of native arteries of extremities, bilateral legs (principal); I70.8 Atherosclerosis of other arteries
CPT/HCPCS: 93925

== ENCOUNTER 2022-02-21 14:29 | Emergency (ER) | payer MEDICARE, MEDICAID ==
[~2022-02-21] VITALS: Ht 152.4 cm; Wt 59.1 kg
--- NOTE | 2022-02-21 14:35 | NUR ---
Pt arrived very anxious and upset. States that she has things to do today and drama at home and is hoping to reschedule. Dr. Herron at bedside to evaluate pt.
[2022-02-21] MEDS ORDERED: IODIXANOL 320 MG/ML INFUS..BTL 50ML IV ONE (14:57)
[2022-02-21] MEDS ORDERED: IODIXANOL 320 MG/ML INFUS..BTL 100ML IV ONE (14:57)
[2022-02-21 15:02] LABS: BASOPHILS # (AUTO) 0.1 X10'3 (0-0.2); BASOPHILS % (AUTO) 0.9 % (0-1); EOSINOPHILS # (AUTO) 0.1 X10'3 (0-0.9); EOSINOPHILS % (AUTO) 0.8 % (0-6); HEMATOCRIT 39.9 % (35.0-45.0); HEMOGLOBIN 13.1 g/dl (12.0-16.0); LYMPHOCYTES # (AUTO) 1.5 X10'3 (1.1-4.8); LYMPHOCYTES % (AUTO) 18.6 % (21-51); MEAN CORPUSCULAR HEMOGLOBIN 27.3 PG (27.0-31.0); MEAN CORPUSCULAR HGB CONC 32.8 g/dL (33.0-36.5); MEAN CORPUSCULAR VOLUME 83.4 FL (78-98); MEAN PLATELET VOLUME 8.6 FL (7.4-10.4); MONOCYTES # (AUTO) 0.4 X10'3 (0-0.9); NEUTROPHILS # (AUTO) 6.2 X10'3 (1.8-7.7); NEUTROPHILS % (AUTO) 74.7 % (42-75); PLATELET COUNT 278 X10'3 (140-440); RED BLOOD COUNT 4.78 X10'6 (4.20-5.60); RED CELL DISTRIBUTION WIDTH 12.7 % (11.5-14.5); WHITE BLOOD COUNT 8.3 X10'3 (4.5-11.0)
--- NOTE | 2022-02-21 15:04 | NUR ---
Positional IV established, 20g in RAC. Flushes well and pulls blood. Pt enroute to CT.
[2022-02-21 15:24] LABS: ALANINE AMINOTRANSFERASE 20 U/L (12-78); ALBUMIN 3.5 G/DL (3.4-5.0); ALBUMIN/GLOBULIN RATIO 0.9 (1.1-1.5); ALKALINE PHOSPHATASE 105 IU/L (46-116); ANION GAP 7 (8-16); APTT 27 SECONDS (22-32); ASPARTATE AMINO TRANSFERASE 15 U/L (10-37); BILIRUBIN,TOTAL 0.2 MG/DL (0.1-1.0); BLOOD UREA NITROGEN 21 MG/DL (7-18); BUN/CREATININE RATIO 26.6 (6.6-38.0); CALCIUM 9.2 MG/DL (8.5-10.1); CHLORIDE 104 MMOL/L (99-107); CREATININE 0.79 MG/DL (0.40-0.90); GLUCOSE 205 MG/DL (70-104); POTASSIUM 3.9 MMOL/L (3.5-5.1); SODIUM 141 MMOL/L (135-145); TOTAL CARBON DIOXIDE 29.8 MMOL/L (24-32); TOTAL PROTEIN 7.2 G/DL (6.4-8.2); eGFR 74 ML/MIN
--- NOTE | 2022-02-21 15:42 | NUR ---
Pt updated on wait for CT report. VSS
[2022-02-21] MEDS ORDERED: APIX2.5T PO (15:57)
[2022-02-21 16:23] VITALS: BP 156/73
== END 2022-02-21 16:25 | disposition home or self-care (01) ==
LOC: ER 14:30
DX: I70.721 Atherosclerosis of other type of bypass graft(s) of the extremities with rest pain, right leg (principal); M79.604 Pain in right leg; E11.42 Type 2 diabetes mellitus with diabetic polyneuropathy; Z98.890 Other specified postprocedural states; Z79.4 Long term (current) use of insulin; Z79.899 Other long term (current) drug therapy
CPT/HCPCS: 36415; 75635; 80053; 85025; 85610; 85730; 93005; 93925; 99285; Q9967

== ENCOUNTER 2022-03-02 06:44 | Day surgery (SDC) | payer MEDICARE, MEDICAID ==
[~2022-03-02] VITALS: Ht 152.4 cm; Wt 60.2 kg
[2022-03-02] VITALS (10 sets, daily range): BP systolic 117–153; BP diastolic 66–85
[2022-03-02] MEDS ORDERED: HYDR25TA4 PO (07:15)
[2022-03-02] MEDS ORDERED: TRAZ-251 PO (07:15)
[2022-03-02] MEDS ORDERED: fish oil PO (07:15)
[2022-03-02] MEDS ORDERED: ERGO500093 PO (07:15)
[2022-03-02] MEDS ORDERED: APIX5TAB3 PO (07:15)
[2022-03-02] MEDS ORDERED: MELA5TAB12 PO (07:15)
[2022-03-02] MEDS ORDERED: normal saline 1000ml 1,000 ML IV PRN (07:20)
[2022-03-02] MEDS ORDERED: clopidogrel 75mg tablet PO SCH (08:00)
[2022-03-02 08:14] LABS: BASOPHILS # (AUTO) 0.1 X10'3 (0-0.2); BASOPHILS % (AUTO) 0.8 % (0-1); EOSINOPHILS # (AUTO) 0.2 X10'3 (0-0.9); EOSINOPHILS % (AUTO) 2.3 % (0-6); HEMATOCRIT 41.7 % (35.0-45.0); HEMOGLOBIN 13.5 g/dl (12.0-16.0); LYMPHOCYTES % (AUTO) 21.9 % (21-51); MEAN CORPUSCULAR HGB CONC 32.3 g/dL (33.0-36.5); MEAN CORPUSCULAR VOLUME 83.5 FL (78-98); MEAN PLATELET VOLUME 8.7 FL (7.4-10.4); MONOCYTES # (AUTO) 0.5 X10'3 (0-0.9); MONOCYTES % (AUTO) 5.5 % (2-12); NEUTROPHILS # (AUTO) 6.3 X10'3 (1.8-7.7); NEUTROPHILS % (AUTO) 69.5 % (42-75); PLATELET COUNT 286 X10'3 (140-440); RED CELL DISTRIBUTION WIDTH 12.4 % (11.5-14.5); WHITE BLOOD COUNT 9.1 X10'3 (4.5-11.0)
[2022-03-02] MEDS ORDERED: LIDOCAINE 1% w/preservative (10 MG/ML) inj. 10mL VIAL ONE (08:22)
[2022-03-02] MEDS ORDERED: iohexol 300 MG/1 ML 50ml polymer ONE (08:23)
[2022-03-02] MEDS ORDERED: midazolam 1 mg/ML 2ml injection ONE ×2 (08:23→09:55)
[2022-03-02] MEDS ORDERED: fentaNYL/PF 50MCG/1 ML 2ML syringe ONE ×2 (08:23→09:55)
[2022-03-02 08:24] LABS: ALBUMIN 3.8 G/DL (3.4-5.0); ANION GAP 10 (8-16); BLOOD UREA NITROGEN 23 MG/DL (7-18); BUN/CREATININE RATIO 24.7 (6.6-38.0); CALCIUM 9.7 MG/DL (8.5-10.1); CHLORIDE 102 MMOL/L (99-107); CREATININE 0.93 MG/DL (0.40-0.90); GLUCOSE 268 MG/DL (70-104); POTASSIUM 4.2 MMOL/L (3.5-5.1); SODIUM 139 MMOL/L (135-145); TOTAL CARBON DIOXIDE 26.8 MMOL/L (24-32); eGFR 62 ML/MIN
[2022-03-02] MEDS ORDERED: heparin 1,000 UNITS/NS 500ml 500 ML ONE ×2 (08:54→10:30)
[2022-03-02] MEDS ORDERED: diphenhydrAMINE 50 mg/ml inj ONE (09:03)
[2022-03-02] MEDS ORDERED: heparin 1,000unit/ml 10ml vial 10 ML ONE (10:09)
[2022-03-02] MEDS ORDERED: LIDOcaine 1%/PF 5ML 10 MG/ML VIAL ONE (10:34)
[2022-03-02] MEDS ORDERED: normal saline 1000ml 1,000 ML IV SCH (12:20)
--- NOTE | 2022-03-02 12:45 | NUR ---
Called [facility] regarding Plavix order. Dr. Hanson said ok to give Plavix.
== END 2022-03-02 17:10 | disposition home or self-care (01) ==
LOC: SSTAY O 06:44
PROVIDERS: ATTEND Radiology Vascular & Interventional Radiology
DX: I70.321 Atherosclerosis of unspecified type of bypass graft(s) of the extremities with rest pain, right leg (principal); F17.210 Nicotine dependence, cigarettes, uncomplicated; Z79.01 Long term (current) use of anticoagulants; Z79.899 Other long term (current) drug therapy; Z79.84 Long term (current) use of oral hypoglycemic drugs; Z98.890 Other specified postprocedural states
CPT/HCPCS: 36415; 37224; 75625; 75710; 76937; 80048; 85025; 85347; 85610; 99152; 99153; C1725; C1760; C1769; C1894; J1200; J1644; J2250; J3010; J3490; J7030; Q9967; 36246; G0269

== ENCOUNTER 2022-04-07 06:21 | Day surgery (SDC) | payer MEDICARE, MEDICAID ==
[~2022-04-07] VITALS: Ht 152.4 cm; Wt 53.8 kg
[2022-04-07] VITALS (9 sets, daily range): BP systolic 118–154; BP diastolic 65–88
[~2022-04-07 06:21] MED LIST changes: +APIX5TAB3 PO; +ERGO500093 PO; +HYDR25TA4 PO; +MELA5TAB12 PO; +TRAZ-251 PO; +fish oil PO
[2022-04-07 07:38] LABS: BASOPHILS # (AUTO) 0.1 X10'3 (0-0.2); BASOPHILS % (AUTO) 1.1 % (0-1); EOSINOPHILS # (AUTO) 0.5 X10'3 (0-0.9); EOSINOPHILS % (AUTO) 4.2 % (0-6); HEMATOCRIT 40.9 % (35.0-45.0); HEMOGLOBIN 13.7 g/dl (12.0-16.0); LYMPHOCYTES # (AUTO) 2.6 X10'3 (1.1-4.8); LYMPHOCYTES % (AUTO) 23.9 % (21-51); MEAN CORPUSCULAR HEMOGLOBIN 27.1 PG (27.0-31.0); MEAN CORPUSCULAR HGB CONC 33.5 g/dL (33.0-36.5); MEAN CORPUSCULAR VOLUME 80.9 FL (78-98); MONOCYTES # (AUTO) 0.7 X10'3 (0-0.9); MONOCYTES % (AUTO) 6.2 % (2-12); NEUTROPHILS # (AUTO) 6.9 X10'3 (1.8-7.7); NEUTROPHILS % (AUTO) 64.6 % (42-75); PLATELET COUNT 305 X10'3 (140-440); RED BLOOD COUNT 5.06 X10'6 (4.20-5.60); RED CELL DISTRIBUTION WIDTH 12.6 % (11.5-14.5); WHITE BLOOD COUNT 10.7 X10'3 (4.5-11.0)
[2022-04-07 07:42] LABS: ALBUMIN 4.4 G/DL (3.4-5.0); ANION GAP 9 (8-16); BLOOD UREA NITROGEN 22 MG/DL (7-18); BUN/CREATININE RATIO 20.2 (6.6-38.0); CALCIUM 9.7 MG/DL (8.5-10.1); CHLORIDE 100 MMOL/L (99-107); CREATININE 1.09 MG/DL (0.40-0.90); GLUCOSE 264 MG/DL (70-104); POTASSIUM 3.6 MMOL/L (3.5-5.1); SODIUM 138 MMOL/L (135-145); TOTAL CARBON DIOXIDE 29.1 MMOL/L (24-32); eGFR 51 ML/MIN
[2022-04-07] MEDS ORDERED: diphenhydrAMINE 50 mg/ml inj ONE (09:33)
[2022-04-07] MEDS ORDERED: fentaNYL/PF 50MCG/1 ML 2ML syringe ONE ×3 (09:33→12:17)
[2022-04-07] MEDS ORDERED: heparin 1,000 UNITS/NS 500ml 500 ML ONE ×2 (09:33→13:23)
[2022-04-07] MEDS ORDERED: midazolam 1 mg/ML 2ml injection ONE ×3 (09:33→12:17)
[2022-04-07] MEDS ORDERED: LIDOcaine 1%/PF 5ML 10 MG/ML VIAL ONE (09:33)
[2022-04-07] MEDS ORDERED: iohexol 300 MG/1 ML 50ml polymer ONE (09:34)
[2022-04-07] MEDS ORDERED: IOHEXOL 300 MG/ML 30ML INFUS..BTL IV ONE (10:37)
[2022-04-07] MEDS ORDERED: nitroGLYCERIN-Tridil 50MG/D5W 250 ML IV ONE (12:05)
== END 2022-04-07 17:15 | disposition home or self-care (01) ==
LOC: SSTAY O 06:21
PROVIDERS: ATTEND Radiology Vascular & Interventional Radiology
DX: E11.51 Type 2 diabetes mellitus with diabetic peripheral angiopathy without gangrene (principal); I70.221 Atherosclerosis of native arteries of extremities with rest pain, right leg; Z79.899 Other long term (current) drug therapy; F17.210 Nicotine dependence, cigarettes, uncomplicated
CPT/HCPCS: 36247; 36415; 75710; 76937; 80048; 82948; 85025; 99152; 99153; C1725; C1760; C1769; C1887; C1894; J1200; J1644; J2250; J3010; J3490; J7030; Q9967; 36245; A4620; A6213

== ENCOUNTER 2022-08-17 15:14 | Emergency (ER) | payer MEDICARE, MEDICAID ==
[~2022-08-17] VITALS: Ht 152.4 cm; Wt 61.4 kg
[2022-08-17 15:20] VITALS: BP 134/64
[2022-08-17] MEDS ORDERED: ondansetron 4mg rapidly disintigrating tab PO ONE (16:10)
[2022-08-17] MEDS ORDERED: cephalexin 250mg capsule PO ONE (16:10)
[2022-08-17] MEDS ORDERED: HYDROcodone/acetaminophen 5mg/325mg tablet PO ONE (16:10)
--- NOTE | 2022-08-17 16:35 | NUR ---
PO MEDS X3 GIVEN
[2022-08-21] MEDS ORDERED: VARE1TAB29 (11:42)
[2022-08-21] MEDS ORDERED: INSU100I29 (11:42)
[2022-08-21] MEDS ORDERED: GLIP10TA21 PO (11:42)
[2022-08-21] MEDS ORDERED: CEPH-585 PO (11:42)
== END 2022-08-17 16:36 | disposition home or self-care (01) ==
LOC: ER 15:15
DX: M79.674 Pain in right toe(s) (principal); E11.621 Type 2 diabetes mellitus with foot ulcer; L97.519 Non-pressure chronic ulcer of other part of right foot with unspecified severity; E11.42 Type 2 diabetes mellitus with diabetic polyneuropathy; Z98.890 Other specified postprocedural states; Z79.899 Other long term (current) drug therapy; Z79.4 Long term (current) use of insulin
CPT/HCPCS: 99284

== ENCOUNTER 2022-08-18 12:12 | Outpatient (CLI) | payer MEDICARE, MEDICAID | END 2022-08-18 23:59 | disposition home or self-care (01) | LOC: VAS 12:12 | PROVIDERS: ATTEND Surgery | DX: I82.441 Acute embolism and thrombosis of right tibial vein (principal); I73.9 Peripheral vascular disease, unspecified; L08.9 Local infection of the skin and subcutaneous tissue, unspecified | CPT/HCPCS: 93922; 93926 ==

== ENCOUNTER 2022-11-15 11:02 | Emergency (ER) | payer MEDICARE, MEDICAID ==
[~2022-11-15] VITALS: Ht 152.4 cm; Wt 65.0 kg
[~2022-11-15 11:02] MED LIST changes: +CEPH-585 PO; +GLIP10TA21 PO; +INSU100I29; -INSU100I31 SQ; -MELA5TAB12 PO; -METF-438 PO; +VARE1TAB29
[2022-11-15 11:04] VITALS: BP 149/82
[2022-11-15] MEDS ORDERED: HYDR-3965 PO (11:45)
[2022-11-15] MEDS ORDERED: AMOX-580 PO (11:45)
[2022-11-15] MEDS: amox tr/potassium clavulanate 875/125mg TAB PO ONE (11:59)
== END 2022-11-15 12:18 | disposition home or self-care (01) ==
LOC: ER 11:03
DX: L03.115 Cellulitis of right lower limb (principal); E11.9 Type 2 diabetes mellitus without complications
CPT/HCPCS: 99283

== ENCOUNTER 2022-12-01 16:25 | Emergency (ER) | payer MEDICARE, MEDICAID ==
[~2022-12-01] VITALS: Ht 157.5 cm; Wt 65.0 kg
[~2022-12-01 16:25] MED LIST changes: +AMOX-580 PO
[2022-12-01 17:03] VITALS: BP 124/41
[2022-12-01] MEDS ORDERED: HYDROcodone/acetaminophen 5mg/325mg tablet PO ONE (17:15)
== END 2022-12-01 18:36 | disposition home or self-care (01) ==
LOC: ER 16:26
DX: L03.115 Cellulitis of right lower limb (principal); M79.671 Pain in right foot; E11.9 Type 2 diabetes mellitus without complications
CPT/HCPCS: 73630; 99283

== ENCOUNTER 2022-12-05 09:24 | Emergency (ER) | payer MEDICARE, MEDICAID ==
[~2022-12-05] VITALS: Ht 160 cm; Wt 63.6 kg
[2022-12-05 09:50] VITALS: BP 133/79
[2022-12-05] MEDS ORDERED: CEPH250T PO (12:09)
== END 2022-12-05 12:17 | disposition home or self-care (01) ==
LOC: ER 09:24
DX: L60.0 Ingrowing nail (principal); E11.9 Type 2 diabetes mellitus without complications; Z87.891 Personal history of nicotine dependence
CPT/HCPCS: 99283

== ENCOUNTER 2022-12-07 10:43 | Outpatient (CLI) | payer MEDICARE, MEDICAID ==
[~2022-12-07 10:43] MED LIST changes: +CEPH250T PO
[2022-12-07] MEDS ORDERED: iohexol 350MG/ML 100ml bottle IV ONE (10:59)
[2022-12-07] MEDS ORDERED: iohexol 350 MG/ML 50ML vial IV ONE (10:59)
[2022-12-07] MEDS ORDERED: MESSAGE TO NURSING PO NR (11:40)
== END 2022-12-07 23:59 | disposition home or self-care (01) ==
LOC: RAD 10:43
PROVIDERS: ATTEND Surgery
DX: I74.3 Embolism and thrombosis of arteries of the lower extremities (principal); I74.8 Embolism and thrombosis of other arteries; I73.9 Peripheral vascular disease, unspecified; I70.0 Atherosclerosis of aorta
CPT/HCPCS: 75635; J3490; Q9967

== ENCOUNTER 2023-06-22 17:51 | Emergency (ER) | payer MEDICARE, MEDICAID ==
[~2023-06-22] VITALS: Ht 152.4 cm; Wt 68.2 kg
[~2023-06-22 17:51] MED LIST changes: -AMOX-580 PO; -CEPH250T PO
[2023-06-22 18:04] VITALS: BP 142/75; PULSE 98; RESP 18; TEMP 98.7; O2SAT 97
== END 2023-06-22 18:49 | disposition home or self-care (01) ==
LOC: ER 17:52
DX: S80.11XA Contusion of right lower leg, initial encounter (principal); E11.9 Type 2 diabetes mellitus without complications; Z87.81 Personal history of (healed) traumatic fracture; X58.XXXA Exposure to other specified factors, initial encounter; Y93.89 Activity, other specified; Y92.89 Other specified places as the place of occurrence of the external cause; Y99.8 Other external cause status
CPT/HCPCS: 99281

== ENCOUNTER 2024-11-28 10:26 | Outpatient (CLI) | payer MEDICARE, MEDICAID | END 2024-11-28 23:59 | disposition home or self-care (01) | LOC: VAS 10:26 | PROVIDERS: ATTEND Surgery | DX: I70.213 Atherosclerosis of native arteries of extremities with intermittent claudication, bilateral legs (principal) | CPT/HCPCS: 93925 ==